=== PATIENT | male | born 1985 | race Caucasian/White ===

== ENCOUNTER 2021-03-14 13:37 | Emergency (ER) | payer SELFPAY ==
[2021-03-14 13:57] VITALS: BP 138/74; PULSE 96; RESP 18; TEMP 98
--- NOTE | 2021-03-14 14:27 | ED ---
Extremity Problem HPI - General Source: patient Mode of arrival: ambulatory Limitations: no limitations <Marta Edmond - Last Filed: 03/14/21 15:00> <Susanna Johnson - Last Filed: 03/15/21 01:22> - General Chief complaint: Extremity Problem,Nontraumatic Stated complaint: Lft ankle pain Time Seen by Provider: 03/14/21 14:01 - History of Present Illness Initial comments: Patient is a 35-year-old male presenting to emergency Department with complaints of left ankle pain over the past week. He describes it as in the front part of his left lower leg near the ankle. He denies any trauma or injuries to his left ankle. Denies any previous surgeries or injuries. He denies any fevers or chills, nausea or vomiting, denies any redness to the area. Denies history of gout. He has no further complaints at this time. (Marta Edmond) - Related Data Previous Rx's Medication Instructions Recorded Mirtazapine [Remeron] 15 mg PO HS 30 Days tab 08/19/14 Omeprazole [PriLOSEC] 20 mg PO AC-BID 30 Days capsule. 08/19/14 Allergies Allergy/AdvReac Type Severity Reaction Status Date / Time No Known Allergies Allergy Verified 03/14/21 13:57 Review of Systems ROS Other: All systems not noted in ROS Statement are negative. <Marta Edmond - Last Filed: 03/14/21 15:00> ROS Other: All systems not noted in ROS Statement are negative. <Susanna Johnson - Last Filed: 03/15/21 01:22> ROS Statement: Those systems with pertinent positive or pertinent negative responses have been documented in the HPI. Past Medical History Past Medical History: No Reported History History of Any Multi-Drug Resistant Organisms: None Reported Past Surgical History: Hernia Repair Past Psychological History: No Psychological Hx Reported Smoking Status: Current every day smoker Past Alcohol Use History: Occasional Past Drug Use History: Marijuana <Marta Edmond - Last Filed: 03/14/21 15:00> General Exam Limitations: no limitations <Marta Edmond - Last Filed: 03/14/21 15:00> - General Exam Comments Initial Comments: GENERAL: Patient is well-developed and well-nourished. Patient is nontoxic and in no acute distress. HEAD: Atraumatic, normocephalic. EYES: Pupils equal round and reactive to light, extraocular movements intact, sclera anicteric, conjunctiva are normal. Eyelids were unremarkable. LUNGS: Unlabored respirations. Breath sounds clear to auscultation bilaterally and equal. No wheezes rales or rhonchi. HEART: Regular rate and rhythm without murmurs, rubs or gallops. MUSCULOSKELETAL: Patient has tenderness along the lower aspect of the left anterior tib muscle and tendon, there is no swelling of the left ankle, [place] neurovascular intact. There is no deformity, no redness, no signs of infection. No clubbing or cyanosis. NEUROLOGICAL: Patient is alert and oriented x 3. SKIN: Warm, Dry, normal turgor, no rashes or lesions noted. (Marta Edmond) Course Vital Signs 03/14/21 13:55 Temperature 98.0 F Pulse Rate 96 Respiratory 18 Rate Blood Pressure 138/74 O2 Sat by Pulse 98 Oximetry Medical Decision Making <Marta Edmond - Last Filed: 03/14/21 15:00> <Susanna Johnson - Last Filed: 03/15/21 01:22> - Medical Decision Making Patient is a 35-year-old male here for left ankle pain increasing over the past week. He has tenderness along the left anterior distal tibialis tendon and muscle. There is no deformity, no swelling, no signs of infection. No history of gout. Denies any injury. X-rays revealed no acute process and his left ankle. Discussed with patient this is most likely a tendinitis. Recommended ice to the area, ibuprofen or Tylenol for discomfort. If symptoms persist he can follow up with orthopedic. I will give him referral. He is stable for discharge. Case discussed with Dr. Montiel. (Marta Edmond) Case was also discussed with me (Susanna Johnson) Disposition Is patient prescribed a controlled substance at d/c from ED?: No Time of Disposition: 14:45 <Marta Edmond - Last Filed: 03/14/21 15:00> <Susanna Johnson - Last Filed: 03/15/21 01:22> Clinical Impression: Left ankle tendinitis Disposition: HOME SELF-CARE Condition: Stable Instructions (If sedation given, give patient instructions): Tendinitis (ED) Additional Instructions: Please return to the Emergency Department if symptoms worsen or any other concerns. Recommend ice to the area, ibuprofen for pain. If symptoms persist, follow up with orthopedics. Referrals: Akira Flor MD [Primary Care Provider] - 1-2 days Ceasar Becerra MD [STAFF PHYSICIAN] - 1-2 days
--- NOTE | 2021-03-14 14:35 | XR ---
EXAMINATION TYPE: XR ankle complete LT DATE OF EXAM: 03/14/2021 CLINICAL HISTORY: Pain and swelling TECHNIQUE: Frontal, lateral and oblique images of the left ankle are obtained. COMPARISON: None. FINDINGS: There is no acute fracture/dislocation evident in the left ankle. There is a nonspecific a nkle joint effusion. IMPRESSION: There is no acute fracture or dislocation in the left ankle. Nonspecific ankle joint eff usion.
== END 2021-03-14 15:23 | disposition home or self-care (01) ==
LOC: EC 13:37
DX: M77.52 Other enthesopathy of left foot and ankle (principal); F17.200 Nicotine dependence, unspecified, uncomplicated
CPT/HCPCS: 99283

== ENCOUNTER 2021-07-19 02:12 | Emergency (ER) | payer OTHER ==
[2021-07-19 02:33] VITALS: BP 116/74; PULSE 114; RESP 16; TEMP 98.9
--- NOTE | 2021-07-19 03:23 | XR ---
EXAMINATION TYPE: XR Hip Complete RT DATE OF EXAM: 07/19/2021 COMPARISON: NONE HISTORY: Hip pain TECHNIQUE: 2 views FINDINGS: I see no fracture nor dislocation. Hip joint space is normal. There is no hip dysplasia. Sa croiliac joint is intact. IMPRESSION: Negative right hip exam.
--- NOTE | 2021-07-19 03:32 | ED ---
General Adult HPI - General Chief complaint: Back Pain/Injury Stated complaint: Hip Pain, Possibly dislocated Time Seen by Provider: 07/19/21 02:48 Source: patient Mode of arrival: ambulatory - History of Present Illness Initial comments: Patient presented to the ER and reported complaint of 3 months of right hip pain to the triage nurse. He expressed concern that he had had a dislocation on a previous x-ray but never had a reduction. X-rays were obtained based on triage complaint. Patient received x-rays and left the ER prior to ER physician evaluation or discussion of results. - Related Data Previous Rx's Medication Instructions Recorded Mirtazapine [Remeron] 15 mg PO HS 30 Days tab 08/19/14 Omeprazole [PriLOSEC] 20 mg PO AC-BID 30 Days capsule. 08/19/14 Allergies Allergy/AdvReac Type Severity Reaction Status Date / Time No Known Allergies Allergy Verified 07/19/21 02:32 Review of Systems ROS Statement: Those systems with pertinent positive or pertinent negative responses have been documented in the HPI. ROS Other: All systems not noted in ROS Statement are negative. Past Medical History Past Medical History: No Reported History Additional Past Medical History / Comment(s): Hernia surgery in 1999, rib fratures/collaped lungs in 2005 History of Any Multi-Drug Resistant Organisms: None Reported Past Surgical History: Hernia Repair Past Psychological History: No Psychological Hx Reported Smoking Status: Current every day smoker, Vaper Past Alcohol Use History: Occasional Past Drug Use History: None Reported General Exam - General Exam Comments Initial Comments: The patient was not physically examined as he left the ER prior to evaluation by physician Course Vital Signs 07/19/21 02:24 Temperature 98.9 F Pulse Rate 114 H Respiratory 16 Rate Blood Pressure 116/74 O2 Sat by Pulse 98 Oximetry Medical Decision Making - Medical Decision Making X-ray was ordered based on patient's complaint stated in triage, x-ray was obtained and the patient left the ER prior to results or evaluation by physician Disposition Clinical Impression: Right hip pain Disposition: Left Against Medical Advice Condition: Good Is patient prescribed a controlled substance at d/c from ED?: No Referrals: Akira Flor MD [Primary Care Provider] - 1-2 days
== END 2021-07-19 04:00 | disposition left against medical advice (07) ==
LOC: EC 02:12
DX: M54.9 Dorsalgia, unspecified (principal); M25.551 Pain in right hip; F17.290 Nicotine dependence, other tobacco product, uncomplicated
CPT/HCPCS: 73502; 99283

== ENCOUNTER 2022-07-18 11:43 | Emergency (ER) | payer OTHER ==
[2022-07-18 11:54] VITALS: BP 125/66; PULSE 94; RESP 18; TEMP 98
[2022-07-18] MEDS ORDERED: BACITRACIN OINT 1 EACH PACKET TOPICAL ONE (12:39)
--- NOTE | 2022-07-18 12:41 | ED ---
Skin/Abscess/FB HPI - General Chief complaint: Skin/Abscess/Foreign Body Stated complaint: dog bite Time Seen by Provider: 07/18/22 12:27 Source: patient, RN notes reviewed Mode of arrival: ambulatory Limitations: no limitations - History of Present Illness Initial comments: Patient is a 36 year old male presenting to the ER with a chief complaint of dog bite. Patient was trying to break up a dog fight when his brother's dog, deion samano, bit him on his right forearm. Patient states it is very painful to move his wrist and fingers. Denies numbness or tingling. Patient is unsure if the dog is up to date on vaccinations. Patient's last tetanus vaccination was about years ago. Patient has no other complaints at this time. - Related Data Previous Rx's Medication Instructions Recorded Mirtazapine [Remeron] 15 mg PO HS 30 Days tab 08/19/14 Omeprazole [PriLOSEC] 20 mg PO AC-BID 30 Days capsule. 08/19/14 Amoxic-Pot Clav 875-125Mg 1 tab PO Q12HR #20 tab 07/18/22 [Augmentin 875-125] Allergies Allergy/AdvReac Type Severity Reaction Status Date / Time No Known Allergies Allergy Verified 07/18/22 11:53 Review of Systems ROS Statement: Those systems with pertinent positive or pertinent negative responses have been documented in the HPI. ROS Other: All systems not noted in ROS Statement are negative. Past Medical History Past Medical History: No Reported History Additional Past Medical History / Comment(s): Hernia surgery in 1999, rib fratures/collaped lungs in 2005 History of Any Multi-Drug Resistant Organisms: None Reported Past Surgical History: Hernia Repair Past Psychological History: No Psychological Hx Reported Smoking Status: Current every day smoker, Vaper Past Alcohol Use History: Occasional Past Drug Use History: None Reported General Exam Limitations: no limitations General appearance: alert, in no apparent distress Head exam: Present: atraumatic, normocephalic, normal inspection Eye exam: Present: normal appearance, PERRL, EOMI. Absent: scleral icterus, conjunctival injection, periorbital swelling ENT exam: Present: normal exam, mucous membranes moist Neck exam: Present: normal inspection. Absent: tenderness, meningismus, lymphadenopathy Respiratory exam: Present: normal lung sounds bilaterally. Absent: respiratory distress, wheezes, rales, rhonchi, stridor Cardiovascular Exam: Present: regular rate, normal rhythm, normal heart sounds. Absent: systolic murmur, diastolic murmur, rubs, gallop, clicks GI/Abdominal exam: Present: soft, normal bowel sounds. Absent: distended, tenderness, guarding, rebound, rigid Extremities exam: Present: normal inspection Back exam: Present: normal inspection Neurological exam: Present: alert, oriented X3, CN II-XII intact Psychiatric exam: Present: normal affect, normal mood Skin exam: Present: other (1cm wound on right forearm; surrounding edema; 1cm scab over right ulnar styloid process.) Course Vital Signs 07/18/22 11:50 Temperature 98.0 F Pulse Rate 94 Respiratory 18 Rate Blood Pressure 125/66 O2 Sat by Pulse 97 Oximetry Medical Decision Making - Medical Decision Making 36-year-old presented for dog bite. X-ray does read and does not show any foreign body, no bony injury. Patient's tetanus is up-to-date patient discharge on Augmentin wound was cleaned. Patient has full range of motion neurovascular intact. Disposition Clinical Impression: Dog bite of forearm Disposition: HOME SELF-CARE Condition: Stable Instructions (If sedation given, give patient instructions): Animal Bite (ED) Additional Instructions: Please return to the Emergency Department if symptoms worsen or any other concerns. Prescriptions: Amoxic-Pot Clav 875-125Mg [Augmentin 875-125] 1 tab PO Q12HR #20 tab Is patient prescribed a controlled substance at d/c from ED?: No Referrals: Akira Flor MD [Primary Care Provider] - 1-2 days Time of Disposition: 13:09
--- NOTE | 2022-07-18 13:07 | XR ---
EXAMINATION TYPE: XR forearm RT DATE OF EXAM: 07/18/2022 CLINICAL HISTORY: pain TECHNIQUE: Frontal and lateral images of the right forearm are obtained. COMPARISON: None. FINDINGS: There is no acute fracture/dislocation evident. The joint spaces appear within normal limi ts. The overlying soft tissue appears unremarkable. IMPRESSION: There is no acute fracture or dislocation. ICD 10 NO FRACTURE, INITIAL EVALUATION
== END 2022-07-18 13:28 | disposition home or self-care (01) ==
LOC: EC 11:43
DX: S51.851A Open bite of right forearm, initial encounter (principal); F17.290 Nicotine dependence, other tobacco product, uncomplicated; W54.0XXA Bitten by dog, initial encounter; Y92.89 Other specified places as the place of occurrence of the external cause
CPT/HCPCS: 99283

== ENCOUNTER 2023-01-20 20:51 | Emergency (ER) | payer OTHER ==
[2023-01-20] MEDS ORDERED: ACETAMINOPHEN TAB 500 MG TAB PO STA (21:51)
[2023-01-20] MEDS ORDERED: SODIUM CHLORIDE 0.9% 1,000 ML IV STA ×2 (21:52)
[2023-01-20] MEDS ORDERED: KETOROLAC 15 MG/ML 1 ML VIAL IVP STA (21:52)
--- NOTE | 2023-01-20 22:09 | XR ---
EXAMINATION TYPE: XR chest 2V DATE OF EXAM: 01/20/2023 9:59 PM COMPARISON: Chest x-ray 07/16/2012 TECHNIQUE: XR chest 2V . CLINICAL INDICATION:Male, 37 years old with history of cough; FINDINGS: Lungs/Pleura: There is no evidence of pleural effusion, focal consolidation, or pneumothorax. Pulmonary vascularity: Unremarkable. Heart/mediastinum: Cardiomediastinal silhouette is unremarkable. Musculoskeletal: No acute osseous pathology. IMPRESSION: No acute cardiopulmonary disease/process.
[2023-01-20 22:27] LABS: Basophils # (A) 0.1 k/uL (0-0.2); Basophils % (A) 0 %; Eosinophils # (A) 0.2 k/uL (0-0.7); Eosinophils % (A) 1 %; HCT 42.3 % (39.0-53.0); HGB 14.4 gm/dL (13.0-17.5); Lymphocytes # (A) 2.3 k/uL (1.0-4.8); Lymphocytes % (A) 14 %; MCH 29.1 pg (25.0-35.0); MCV 85.6 fL (80.0-100.0); Mean Platelet Volume 6.7; Monocytes # (A) 0.5 k/uL (0-1.0); Monocytes % (A) 3 %; Neutrophils # (A) 13.5 k/uL (1.3-7.7); Neutrophils % (A) 81 %; Platelet Count 237 k/uL (150-450); RBC 4.95 m/uL (4.30-5.90); RDW 13.1 % (11.5-15.5); WBC 16.7 k/uL (3.8-10.6)
[2023-01-20 22:37] LABS: African American GFR (CKD) >90 (>60 ml/min/1.73 sqM); Anion Gap 11 mmol/L; Blood Urea Nitrogen 11 mg/dL (9-20); Calcium 8.6 mg/dL (8.4-10.2); Carbon Dioxide 24 mmol/L (22-30); Chloride 98 mmol/L (98-107); Glucose 163 mg/dL (74-99); Non-African American GFR(CKD) >90 (>60 ml/min/1.73 sqM); Potassium 3.8 mmol/L (3.5-5.1); Sodium 133 mmol/L (137-145)
[2023-01-20] MEDS ORDERED: AZITHROMYCIN 500 MG TAB PO STA (23:31)
--- NOTE | 2023-01-20 23:32 | ED ---
General Adult HPI - General Chief complaint: Upper Respiratory Infection Stated complaint: Congestion Time Seen by Provider: 01/20/23 21:42 Source: patient, RN notes reviewed, old records reviewed Mode of arrival: ambulatory Limitations: no limitations - History of Present Illness Initial comments: Patient is a 37-year-old male who presents with Department complaining of cough, congestion for multiple days. States it has been ongoing for a week without much improvement. States he is less than appetite and denies joint pain. No known sick contacts. No abdominal pain, nausea, vomiting, diarrhea. No chest pain. Does have a history of polysubstance abuse. Denies any documented fevers at home. Denies any urinary complaints. No known sick contacts. No other acute complaints at this time. Presents over concern for his upper respiratory infection. States he does have a cough and is sometimes productive but is uncertain what color it is. - Related Data Previous Rx's Medication Instructions Recorded Azithromycin [Zithromax] 250 mg PO DAILY 4 Days #4 tab 01/20/23 Allergies Allergy/AdvReac Type Severity Reaction Status Date / Time No Known Allergies Allergy Verified 01/20/23 21:06 Review of Systems ROS Statement: Those systems with pertinent positive or pertinent negative responses have been documented in the HPI. Review of Systems: CONST: Denies fever EYES: Denies blurry vision ENT: Endorses nasal congestion C/V: Denies Chest pain RESP: Endorses cough GI: Denies abdominal pain : Denies dysuria SKIN: Denies rash. MSK: Denies joint pain. NEURO: Denies headache ROS Other: All systems not noted in ROS Statement are negative. Past Medical History Past Medical History: No Reported History Additional Past Medical History / Comment(s): Hernia surgery in 1999, rib fratures/collaped lungs in 2005 History of Any Multi-Drug Resistant Organisms: None Reported Past Surgical History: Hernia Repair Past Psychological History: No Psychological Hx Reported Smoking Status: Current every day smoker, Vaper Past Alcohol Use History: Occasional Past Drug Use History: None Reported General Exam - General Exam Comments Initial Comments: General: Appears in no acute distress. HEAD: Normal with no signs of head trauma. EYES: PERRLA, EOMI, conjunctiva normal, no discharge. ENT: Hearing grossly intact, normal oropharynx. RESPIRATORY: Clear breath sounds bilaterally. No wheezes, rales, or rhonchi. No hypoxia. No respiratory distress. C/V: Tachycardic with a regular rhythm.. S1 and S2 auscultated, no edema, peripheral pulses 2+ and intact throughout ABD: Abd is soft, nontender, nondistended EXT: Normal range of motion, no obvious deformity SKIN: No rashes or lesions observed on exposed skin. NEURO: Alert and oriented 4. Limitations: no limitations Course Vital Signs 01/20/23 21:03 Temperature 98.6 F Pulse Rate 125 H Respiratory 22 Rate Blood Pressure 121/76 O2 Sat by Pulse 97 Oximetry Medical Decision Making - Medical Decision Making Was pt. sent in by a medical professional or institution (, MANOHAR, UNDERCOVER AGENT, urgent care, hospital, or fci...) When possible be specific @ -No Did you speak to anyone other than the patient for history (EMS, parent, family, police, friend...)? What history was obtained from this source @ -No Did you review nursing and triage notes (agree or disagree)? Why? @ -I reviewed and agree with nursing and triage notes Were old charts reviewed (outside hosp., previous admission, EMS record, old EKG, old radiological studies, urgent care reports/EKG's, fci records)? Report findings @ -No old charts were reviewed Differential Diagnosis (chest pain, altered mental status, abdominal pain women, abdominal pain men, vaginal bleeding, weakness, fever, dyspnea, syncope, headache, dizziness, GI bleed, back pain, seizure, CVA, palpatations, mental health, musculoskeletal)? @ -Viral illness, pneumonia, bronchitis, strep pharyngitis, dehydration. The face is not all-inclusive. EKG interpreted by me (3pts min.). @ -As above X-rays interpreted by me (1pt min.). @ -Chest x-ray reveals no obvious acute cardio pulmonary process. CT interpreted by me (1pt min.). @ -None done U/S interpreted by me (1pt. min.). @ -None done What testing was considered but not performed or refused? (CT, X-rays, U/S, labs )? Why? @ -None What meds were considered but not given or refused? Why? @ -None Did you discuss the management of the patient with other professionals (professionals i.e. , MANOHAR, UNDERCOVER AGENT, lab, RT, psych nurse, clinical social worker, machine printer hose, teacher, chief knowledge officer, high risk case manager)? Give summary @ -No Was smoking cessation discussed for >3mins.? @ -No Was critical care preformed (if so, how long)? @ -No Were there social determinants of health that impacted care today? How? (Homelessness, low income, unemployed, alcoholism, drug addiction, transportation, low edu. Level, literacy, decrease access to med. care, fdc, rehab)? @ -No Was there de-escalation of care discussed even if they declined (Discuss DNR or withdrawal of care, Hospice)? DNR status @ -No What co-morbidities impacted this encounter? (DM, HTN, Smoking, COPD, CAD, Cancer, CVA, ARF, Chemo, Hep., AIDS, mental health diagnosis, sleep apnea, morbid obesity)? @ -None Was patient admitted / discharged? Hospital course, mention meds given and route, prescriptions, significant lab abnormalities, going to OR and other pertinent info. @ -Based on the patient's presentation and physical exam, I'm concerned for infectious etiology for the patient's current symptoms. Likely upper respiratory. We will obtain viral swabs, strep throat swab, as well as chest x- ray and basic labs. He will be given 2 L fluid bolus due to his tachycardia and suspected dehydration. Patient was in agreement this plan. I will provide him with a dose of Tylenol as well as Toradol. Vital signs within acceptable limits other than the tachycardia at this time. No respiratory distress. Labs show a leukocytosis of 16 which is likely somewhat reactive as well as due to hemoconcentration from dehydration. Vital signs negative. Group A strep negative. Chest x-ray shows no obvious acute cardio pulmonary process. EKG unremarkable. On reevaluation, patient is feeling improved. We discussed his results. Tachycardia has resolved. He'll be discharged home at this time. Did offer him a prescription for azithromycin which he accepted. He will be given a dose prior to discharge. Strict return precautions discussed. Discussed symptomatic treatment at home. He will be discharged home at this time in good condition. I will provide the patient with a prescription for azithromycin. I instructed the patient to follow up with their PCP in the next 1-3 days. I explained that the patient should return to the emergency department if they experience any worsening symptoms. Strict return precautions were discussed with the patient. The patient expressed understanding of these instructions. I answered all questi ons that the patient had. The patient was discharged home in good condition with their prescriptions and follow up information. Undiagnosed new problem with uncertain prognosis? @ -No Drug Therapy requiring intensive monitoring for toxicity (Heparin, Nitro, Insulin, Cardizem)? @ -No Were any procedures done? @ -No Diagnosis/symptom? @ -Dehydration, bronchitis Acute, or Chronic, or Acute on Chronic? @ -Acute Uncomplicated (without systemic symptoms) or Complicated (systemic symptoms)? @ -Complicated Side effects of treatment? @ -No Exacerbation, Progression, or Severe Exacerbation? @ -No Poses a threat to life or bodily function? How? (Chest pain, [place], DC, pneumonia, PE, COPD, DKA, ARF, appy, cholecystitis, CVA, Diverticulitis, Homicidal, Suicidal, threat to staff... and all critical care pts) @ -No - Lab Data Result diagrams: 01/20/23 22:08 01/20/23 22:08 Lab Results 01/20/23 01/20/23 01/20/23 Range/Units 22:08 22:08 22:08 WBC 16.7 H (3.8-10.6) k/uL RBC 4.95 (4.30-5.90) m/uL Hgb 14.4 (13.0-17.5) gm/dL Hct 42.3 (39.0-53.0) % MCV 85.6 (80.0-100.0) fL MCH 29.1 (25.0-35.0) pg MCHC 34.0 (31.0-37.0) g/dL RDW 13.1 (11.5-15.5) % Plt Count 237 (150-450) k/uL MPV 6.7 Neutrophils % 81 % Lymphocytes % 14 % Monocytes % 3 % Eosinophils % 1 % Basophils % 0 % Neutrophils # 13.5 H (1.3-7.7) k/uL Lymphocytes # 2.3 (1.0-4.8) k/uL Monocytes # 0.5 (0-1.0) k/uL Eosinophils # 0.2 (0-0.7) k/uL Basophils # 0.1 (0-0.2) k/uL Sodium 133 L (137-145) mmol/L Potassium 3.8 (3.5-5.1) mmol/L Chloride 98 (98-107) mmol/L Carbon Dioxide 24 (22-30) mmol/L Anion Gap 11 mmol/L BUN 11 (9-20) mg/dL Creatinine 0.71 (0.66-1.25) mg/dL Est GFR (CKD-EPI)AfAm >90 (>60 ml/min/1.73 sqM) Est GFR (CKD-EPI)NonAf >90 (>60 ml/min/1.73 sqM) Glucose 163 H (74-99) mg/dL Calcium 8.6 (8.4-10.2) mg/dL Influenza Type A (PCR) (Not Detectd) Influenza Type B (PCR) (Not Detectd) RSV (PCR) (Not Detectd) SARS-CoV-2 (PCR) (Not Detectd) Group A Strep (PCR) NOT DETECTED (Not Detectd) 01/20/23 Range/Units 22:08 WBC (3.8-10.6) k/uL RBC (4.30-5.90) m/uL Hgb (13.0-17.5) gm/dL Hct (39.0-53.0) % MCV (80.0-100.0) fL MCH (25.0-35.0) pg MCHC (31.0-37.0) g/dL RDW (11.5-15.5) % Plt Count (150-450) k/uL MPV Neutrophils % % Lymphocytes % % Monocytes % % Eosinophils % % Basophils % % Neutrophils # (1.3-7.7) k/uL Lymphocytes # (1.0-4.8) k/uL Monocytes # (0-1.0) k/uL Eosinophils # (0-0.7) k/uL Basophils # (0-0.2) k/uL Sodium (137-145) mmol/L Potassium (3.5-5.1) mmol/L Chloride (98-107) mmol/L Carbon Dioxide (22-30) mmol/L Anion Gap mmol/L BUN (9-20) mg/dL Creatinine (0.66-1.25) mg/dL Est GFR (CKD-EPI)AfAm (>60 ml/min/1.73 sqM) Est GFR (CKD-EPI)NonAf (>60 ml/min/1.73 sqM) Glucose (74-99) mg/dL Calcium (8.4-10.2) mg/dL Influenza Type A (PCR) Not Detected (Not Detectd) Influenza Type B (PCR) Not Detected (Not Detectd) RSV (PCR) Not Detected (Not Detectd) SARS-CoV-2 (PCR) Not Detected (Not Detectd) Group A Strep (PCR) (Not Detectd) - EKG Data -: EKG Interpreted by Me EKG Comments: 12-lead Electrocardiogram Interpretation Note EKG was reviewed and interpreted by myself. 12-lead ECG performed at 2316 is interpreted by me as revealing normal sinus rhythm at a rate of 90 beats per minute. [place] is normal. [place] interval is 130 ms, QRS duration is 160 ms, QTc is 420 ms.. There were no ST or T wave abnormalities to suggest myocardial ischemia or injury. R wave progression across the precordium was satisfactory. By my interpretation this EKG is non-diagnostic for acute ischemia. When compared with EKG from 2014, no significant change. Disposition Clinical Impression: Bronchitis, Dehydration Disposition: HOME SELF-CARE Condition: Good Instructions (If sedation given, give patient instructions): Upper Respiratory Infection (ED), Acute Bronchitis (ED) Prescriptions: Azithromycin [Zithromax] 250 mg PO DAILY 4 Days #4 tab Is patient prescribed a controlled substance at d/c from ED?: No Referrals: None,Stated [Primary Care Provider] - 1-2 days Forms: Area PCPs Time of Disposition: 23:25
[2023-01-21 00:23] VITALS: BP 107/68; PULSE 87; RESP 20; TEMP 97.6
== END 2023-01-21 00:24 | disposition home or self-care (01) ==
LOC: EC 20:51
DX: J40 Bronchitis, not specified as acute or chronic (principal); E86.0 Dehydration; F17.290 Nicotine dependence, other tobacco product, uncomplicated; Z20.822 Contact with and (suspected) exposure to COVID-19
CPT/HCPCS: 36415; 93005; 87651; 80048; 85025; 87636; 71046; 99284; 96374; 96361 ×2; J1885

== ENCOUNTER 2023-02-12 02:23 | Inpatient (IN) | payer OTHER ==
[2023-02-12] MEDS: LACTATED RINGERS 1,000 ML IV SCH ×3 (02:30→17:22)
[2023-02-12] MEDS ORDERED: ROCURONIUM 10 MG/ML (5 ML VIAL) IV STA (02:43)
[2023-02-12] MEDS ORDERED: ETOMIDATE 2 MG/ML 10 ML VIAL IVP STA (02:43)
[2023-02-12] MEDS ORDERED: SODIUM CHLORIDE 0.9% 1,000 ML IV ONE (02:52)
[2023-02-12] MEDS ORDERED: LORazepam 2 MG/ML INJ IV STA (02:53)
[2023-02-12] MEDS: SODIUM CHLORIDE 0.9% 1,000 ML IV ONE ×2 (02:55→02:56)
--- NOTE | 2023-02-12 03:00 | XR ---
EXAM: XR Chest, 1 View CLINICAL HISTORY: intubation TECHNIQUE: Frontal view of the chest. COMPARISON: 01/20/2023 FINDINGS: Lungs: The left lateral hemithorax and costophrenic margin are excluded from the [id number]. No definite focal airspace consolidation, accounting for limitations. Pleural space: No definite right pleural effusion or pneumothorax. Heart: Unremarkable. No cardiomegaly. Mediastinum: No significant alteration. The trachea is midline. Bones/joints: Unremarkable. Tubes, lines and devices: The endotracheal tube is identified approximately 4.1 cm from the julien. Nasogastric tube tip cannot be seen but is below the diaphragm. IMPRESSION: The endotracheal tube is identified approximately 4.1 cm from the julien.
[2023-02-12 03:06] LABS: ALT 23 U/L (4-49); AST 32 U/L (17-59); African American GFR (CKD) 66 (>60 ml/min/1.73 sqM); Albumin 4.6 g/dL (3.5-5.0); Alcohol <10 mg/dL; Alkaline Phosphatase 64 U/L (38-126); Anion Gap 23 mmol/L; Blood Urea Nitrogen 18 mg/dL (9-20); Calcium 9.4 mg/dL (8.4-10.2); Carbon Dioxide 18 mmol/L (22-30); Chloride 104 mmol/L (98-107); Creatine Kinase 231 U/L (55-170); Glucose 92 mg/dL (74-99); Non-African American GFR(CKD) 57 (>60 ml/min/1.73 sqM); Potassium 5.8 mmol/L (3.5-5.1); Sodium 145 mmol/L (137-145); Total Bilirubin 0.3 mg/dL (0.2-1.3); Total Protein 7.6 g/dL (6.3-8.2)
[2023-02-12 03:09] LABS: Basophils % (A) 0 %; Eosinophils # (A) 0.1 k/uL (0-0.7); Eosinophils % (A) 1 %; HCT 45.2 % (39.0-53.0); HGB 14.9 gm/dL (13.0-17.5); Lymphocytes # (A) 3.4 k/uL (1.0-4.8); Lymphocytes % (A) 33 %; MCH 29.5 pg (25.0-35.0); MCHC 32.9 g/dL (31.0-37.0); MCV 89.6 fL (80.0-100.0); Mean Platelet Volume 7.6; Monocytes # (A) 0.5 k/uL (0-1.0); Monocytes % (A) 4 %; Neutrophils # (A) 6.1 k/uL (1.3-7.7); Neutrophils % (A) 60 %; Platelet Count 271 k/uL (150-450); RBC 5.05 m/uL (4.30-5.90); RDW 13.9 % (11.5-15.5); WBC 10.2 k/uL (3.8-10.6)
[2023-02-12 03:20] LABS: Partial Thromboplastin Time 20.2 sec (22.0-30.0); Prothrombin Time 10.4 sec (9.0-12.0)
[2023-02-12 03:27] LABS: ABG Base Excess -2.9 mmol/L; ABG HCO3 24 mmol/L (21-25); ABG Oxygen Saturation 99.8 % (94-97); ABG PCO2 56 mmHg (35-45); ABG PH 7.25 (7.35-7.45); ABG PO2 >400 mmHg (83-108); ABG TCO2 26 mmol/L (19-24); Allen Test Performed? Yes
--- NOTE | 2023-02-12 03:28 | ED ---
Overdose HPI - General Chief Complaint: Overdose Stated Complaint: Overdose Time Seen by Provider: 02/12/23 02:40 Source: police, EMS Mode of arrival: EMS Limitations: no limitations - History of Present Illness Initial Comments: 37-year-old male is brought in by police for erratic behavior. They report that the patient ingested 10 g of methamphetamine and then drove to his sponsor's house. He was concerned he was going to get caught with the drugs and therefore ingested it all at one time. Unknown if it was contained in bags. He began having erratic behavior approximately 30 minutes later and the sponsor called EMS. They had difficulty getting the patient out of the house. He was so erratic on seen at they had to give him 10 mg of IM Versed. Patient did have a drop in his sats to 81% with snoring respirations. Patient arrives with a rapid heart rates and no response to painful stimuli. There is some vomitus in the mouth. The police denies that the patient had any physical trauma. No other known ingestions. Remainder of HPI is limited - Related Data Home Medications Medication Instructions Recorded Confirmed No Known Home Medications 02/12/23 02/12/23 Allergies Allergy/AdvReac Type Severity Reaction Status Date / Time No Known Allergies Allergy Verified 02/12/23 08:30 Review of Systems ROS Statement: Those systems with pertinent positive or pertinent negative responses have been documented in the HPI. ROS Other: All systems not noted in ROS Statement are negative. Past Medical History Past Medical History: No Reported History Additional Past Medical History / Comment(s): Hernia surgery in 1999, rib fratures/collaped lungs in 2005 History of Any Multi-Drug Resistant Organisms: None Reported Past Surgical History: Hernia Repair Past Psychological History: No Psychological Hx Reported Smoking Status: Current every day smoker, Vaper Past Alcohol Use History: Occasional Past Drug Use History: None Reported - Past Family History Mother Family Medical History: Unable to Obtain General Exam Limitations: altered mental status General appearance: obtunded, in distress Head exam: Present: atraumatic, normocephalic, normal inspection ENT exam: Present: other (dried vomit on face/corner of mouth) Neck exam: Present: normal inspection. Absent: tenderness, meningismus, lymphadenopathy Respiratory exam: Present: other (decreased respiratory drive) Cardiovascular Exam: Present: normal rhythm, tachycardia GI/Abdominal exam: Present: soft, normal bowel sounds. Absent: distended, tenderness, guarding, rebound, rigid Extremities exam: Present: normal inspection, full ROM, normal capillary refill. Absent: tenderness, pedal edema, joint swelling, calf tenderness Neurological exam: Present: altered, CN II-XII intact, other (does not withdraw to painful stimuli. does not follow commands) Skin exam: Present: diaphoretic Course Vital Signs 02/12/23 02/12/23 02/12/23 02:28 02:39 02:43 Temperature 99.4 F Pulse Rate 158 H 161 H 90 Pulse Rate [ Bilateral Prone ] Respiratory 32 H 16 17 Rate Blood Pressure 84/41 90/57 107/65 O2 Sat by Pulse 95 96 98 Oximetry Fraction of Inspired Oxygen (FIO2) 02/12/23 02/12/23 02/12/23 02:51 02:55 02:56 Temperature Pulse Rate 89 172 H Pulse Rate [ Bilateral Prone ] Respiratory 17 16 Rate Blood Pressure 107/65 105/52 O2 Sat by Pulse 98 97 Oximetry Fraction of 100 Inspired Oxygen (FIO2) 02/12/23 02/12/23 02/12/23 02:59 03:00 03:03 Temperature Pulse Rate 93 156 H Pulse Rate [ 160 H Bilateral Prone ] Respiratory 15 16 Rate Blood Pressure 107/65 110/50 O2 Sat by Pulse 98 97 Oximetry Fraction of Inspired Oxygen (FIO2) 02/12/23 02/12/23 02/12/23 03:10 03:24 03:30 Temperature Pulse Rate 151 H 92 89 Pulse Rate [ Bilateral Prone ] Respiratory 18 15 Rate Blood Pressure 112/53 121/75 121/75 O2 Sat by Pulse 96 98 98 Oximetry Fraction of Inspired Oxygen (FIO2) 02/12/23 02/12/23 02/12/23 03:36 03:40 03:53 Temperature Pulse Rate 137 H 137 H 108 H Pulse Rate [ Bilateral Prone ] Respiratory 16 17 Rate Blood Pressure 115/62 115/62 117/73 O2 Sat by Pulse 96 96 98 Oximetry Fraction of Inspired Oxygen (FIO2) 02/12/23 02/12/23 02/12/23 03:58 04:00 04:10 Temperature 98.5 F Pulse Rate 111 H 110 H Pulse Rate [ Bilateral Prone ] Respiratory 16 14 Rate Blood Pressure 117/73 102/61 O2 Sat by Pulse 98 98 Oximetry Fraction of 50 50 Inspired Oxygen (FIO2) Procedures - Intubation Sedative: Etomidate Mg Given: 20 Paralytic: Rocuronium Mg Given: 50 Laryngoscope: other (glidescope) Size: 4 ET Tube Size: 7.5 ET Tube Uncuffed: No Tube Secured Depth (cm): 22 Tube Secured Location: teeth Tube Placement Confirmation: visualized tube passing through cords, equal breath sounds bilaterally, no breath sounds over epigastrium, confirmation by capnometry Patient Tolerated Procedure: well, no complications - Restraint - Face to Face Restraint Occurrence 1 Patient's Immediate Situation: Endangers self safety, Endangers others' safety Patient's Reaction to the Intervention: Bizarre, Combative, Restless, Resistive to care Patient's Medical & Behavioral Condition: Agitated, Manic, Bizarre behavior Need to Continue or Terminate Restraint or Seclusion: Continue Face to Face Eval of Restraint Date: 02/12/23 Face to Face Eval of Restraint Time: 02:50 Medical Decision Making - Medical Decision Making Was pt. sent in by a medical professional or institution (, PA, CHIEF ESTIMATOR, urgent care, hospital, or jail...) When possible be specific @ -No Did you speak to anyone other than the patient for history (EMS, parent, family, police, friend...)? What history was obtained from this source @ -police Did you review nursing and triage notes (agree or disagree)? Why? @ -I reviewed and agree with nursing and triage notes Were old charts reviewed (outside hosp., previous admission, EMS record, old EKG, old radiological studies, urgent care reports/EKG's, jail records)? Report findings @ -No old charts were reviewed Differential Diagnosis (chest pain, altered mental status, abdominal pain women, abdominal pain men, vaginal bleeding, weakness, fever, dyspnea, syncope, headache, dizziness, GI bleed, back pain, seizure, CVA, palpatations, mental health, musculoskeletal)? @ -drug overdose, alcohol intoxication, svt, acute psychosis EKG interpreted by me (3pts min.). @ -EKG demonstrates rapid heart rate with a rate of 165. QRS 97. QTC of 350. No acute ST segment elevations or depressions X-rays interpreted by me (1pt min.). @ -yes, tube in appropriate position CT interpreted by me (1pt min.). @ -None done U/S interpreted by me (1pt. min.). @ -None done What testing was considered but not performed or refused? (CT, X-rays, U/S, labs)? Why? @ -None What meds were considered but not given or refused? Why? @ -None Did you discuss the management of the patient with other professionals (professionals i.e. , PA, CHIEF ESTIMATOR, lab, RT, psych nurse, social services coordinator, customer service cashier, teacher, chief contract officer, medical case worker)? Give summary @ -Tom Corona from ICU Was smoking cessation discussed for >3mins.? @ -No Was critical care preformed (if so, how long)? @ -yes, 35 minutes for vent management Were there social determinants of health that impacted care today? How? (Nate elessness, low income, unemployed, alcoholism, drug addiction, transportation, low edu. Level, literacy, decrease access to med. care, alf, rehab)? @ -No Was there de-escalation of care discussed even if they declined (Discuss DNR or withdrawal of care, Hospice)? DNR status @ -No What co-morbidities impacted this encounter? (DM, HTN, Smoking, COPD, CAD, Cancer, CVA, ARF, Chemo, Hep., AIDS, mental health diagnosis, sleep apnea, morbid obesity)? @ -None Was patient admitted / discharged? Hospital course, mention meds given and route, prescriptions, significant lab abnormalities, going to OR and other pertinent info. @ -Upon arrival patient is placed into trauma 2. History is obtained from police. Patient is on a nonrebreather due to oxygen saturation 81%. He does have vomits on his lips. He is minimally responsive to painful stimuli. Patient is not protecting his airway and does have some snoring respirations. Because of this the patient is intubated for airway protection. Chest x-ray is performed which demonstrates appropriate position of this tube. Laboratory studies are conducted and reviewed. I spoke with Tom for admission. Patient will be admitted to [facility], [place] - I spoke with Dr. Grewal agreed to admit the patient Undiagnosed new problem with uncertain prognosis? @ -Yes Drug Therapy requiring intensive monitoring for toxicity (Heparin, Nitro, Insulin, Cardizem)? @ -Propofol Were any procedures done? @ -Intubation Diagnosis/symptom? @ -acute meth ingestion, acute vent dependance, sinus tachycardia Acute, or Chronic, or Acute on Chronic? @ -acute Uncomplicated (without systemic symptoms) or Complicated (systemic symptoms)? @ -complicated Side effects of treatment? @ -No Exacerbation, Progression, or Severe Exacerbation? @ -No Poses a threat to life or bodily function? How? (Chest pain, [place], [place], pneumonia, PE, COPD, DKA, ARF, appy, cholecystitis, CVA, Diverticulitis, Homicidal, Suicidal, threat to staff... and all critical care pts) @ -yes, patient came in with altered mentation and not protecting his airway requiring vent dependance - Lab Data Result diagrams: 02/14/23 04:32 02/14/23 04:32 Lab Results 02/12/23 02/12/23 02/12/23 Range/Units 02:55 02:55 02:55 WBC 10.2 (3.8-10.6) k/uL RBC 5.05 (4.30-5.90) m/uL Hgb 14.9 (13.0-17.5) gm/dL Hct 45.2 (39.0-53.0) % MCV 89.6 (80.0-100.0) fL MCH 29.5 (25.0-35.0) pg MCHC 32.9 (31.0-37.0) g/dL RDW 13.9 (11.5-15.5) % Plt Count 271 (150-450) k/uL MPV 7.6 Neutrophils % 60 % Lymphocytes % 33 % Monocytes % 4 % Eosinophils % 1 % Basophils % 0 % Neutrophils # 6.1 (1.3-7.7) k/uL Lymphocytes # 3.4 (1.0-4.8) k/uL Monocytes # 0.5 (0-1.0) k/uL Eosinophils # 0.1 (0-0.7) k/uL Basophils # 0.0 (0-0.2) k/uL PT 10.4 (9.0-12.0) sec INR 1.0 (<1.2) APTT 20.2 L (22.0-30.0) sec Sample Site ABG pH (7.35-7.45) ABG pCO2 (35-45) mmHg ABG pO2 (83-108) mmHg ABG HCO3 (21-25) mmol/L ABG Total CO2 (19-24) mmol/L ABG O2 Saturation (94-97) % ABG Base Excess mmol/L Kee Test FiO2 % Sodium (137-145) mmol/L Potassium (3.5-5.1) mmol/L Chloride (98-107) mmol/L Carbon Dioxide (22-30) mmol/L Anion Gap mmol/L BUN (9-20) mg/dL Creatinine (0.66-1.25) mg/dL Est GFR (CKD-EPI)AfAm (>60 ml/min/1.73 sqM) Est GFR (CKD-EPI)NonAf (>60 ml/min/1.73 sqM) Glucose (74-99) mg/dL Calcium (8.4-10.2) mg/dL Total Bilirubin (0.2-1.3) mg/dL AST (17-59) U/L ALT (4-49) U/L Alkaline Phosphatase (38-126) U/L Creatine Kinase (55-170) U/L Troponin I (0.000-0.034) ng/mL Total Protein (6.3-8.2) g/dL Albumin (3.5-5.0) g/dL Urine Color Yellow Urine Appearance Clear (Clear) Urine pH 5.5 (5.0-8.0) Ur Specific [place] 1.022 (1.001-1.035) Urine Protein Trace H (Negative) Urine Glucose (UA) Negative (Negative) Urine Ketones Negative (Negative) Urine Blood Negative (Negative) Urine Nitrite Negative (Negative) Urine Bilirubin Negative (Negative) Urine Urobilinogen <2.0 (<2.0) mg/dL Ur Leukocyte Esterase Small H (Negative) Urine RBC 4 (0-5) /hpf Urine WBC 24 H (0-5) /hpf Amorphous Sediment Rare H (None) /hpf Urine Mucus Rare H (None) /hpf Urine Opiates Screen Not Detected (NotDetected) Ur Oxycodone Screen Not Detected (NotDetected) Urine Methadone Screen Not Detected (NotDetected) Ur Propoxyphene Screen Not Detected (NotDetected) Ur Barbiturates Screen Not Detected (NotDetected) U Tricyclic Antidepress Not Detected (NotDetected) Ur Phencyclidine Scrn Not Detected (NotDetected) Ur Amphetamines Screen Detected H (NotDetected) U Methamphetamines Scrn Detected H (NotDetected) U Benzodiazepines Scrn Not Detected (NotDetected) Urine Cocaine Screen Not Detected (NotDetected) U Marijuana (THC) Screen Not Detected (NotDetected) Serum Alcohol mg/dL 02/12/23 02/12/23 02/12/23 Range/Units 02:55 02:55 03:26 WBC (3.8-10.6) k/uL RBC (4.30-5.90) m/uL Hgb (13.0-17.5) gm/dL Hct (39.0-53.0) % MCV (80.0-100.0) fL MCH (25.0-35.0) pg MCHC (31.0-37.0) g/dL RDW (11.5-15.5) % Plt Count (150-450) k/uL MPV Neutrophils % % Lymphocytes % % Monocytes % % Eosinophils % % Basophils % % Neutrophils # (1.3-7.7) k/uL Lymphocytes # (1.0-4.8) k/uL Monocytes # (0-1.0) k/uL Eosinophils # (0-0.7) k/uL Basophils # (0-0.2) k/uL PT (9.0-12.0) sec INR (<1.2) APTT (22.0-30.0) sec Sample Site rbrach ABG pH 7.25 L (7.35-7.45) ABG pCO2 56 H (35-45) mmHg ABG pO2 >400 H (83-108) mmHg ABG HCO3 24 (21-25) mmol/L ABG Total CO2 26 H (19-24) mmol/L ABG O2 Saturation 99.8 H (94-97) % ABG Base Excess -2.9 mmol/L Kee Test Yes FiO2 100 % Sodium 145 (137-145) mmol/L Potassium 5.8 H (3.5-5.1) mmol/L Chloride 104 (98-107) mmol/L Carbon Dioxide 18 L (22-30) mmol/L Anion Gap 23 mmol/L BUN 18 (9-20) mg/dL Creatinine 1.52 H (0.66-1.25) mg/dL Est GFR (CKD-EPI)AfAm 66 (>60 ml/min/1.73 sqM) Est GFR (CKD-EPI)NonAf 57 (>60 ml/min/1.73 sqM) Glucose 92 (74-99) mg/dL Calcium 9.4 (8.4-10.2) mg/dL Total Bilirubin 0.3 (0.2-1.3) mg/dL AST 32 (17-59) U/L ALT 23 (4-49) U/L Alkaline Phosphatase 64 (38-126) U/L Creatine Kinase 231 H (55-170) U/L Troponin I <0.012 (0.000-0.034) ng/mL Total Protein 7.6 (6.3-8.2) g/dL Albumin 4.6 (3.5-5.0) g/dL Urine Color Urine Appearance (Clear) Urine pH (5.0-8.0) Ur Specific [place] (1.001-1.035) Urine Protein (Negative) Urine Glucose (UA) (Negative) Urine Ketones (Negative) Urine Blood (Negative) Urine Nitrite (Negative) Urine Bilirubin (Negative) Urine Urobilinogen (<2.0) mg/dL Ur Leukocyte Esterase (Negative) Urine RBC (0-5) /hpf Urine WBC (0-5) /hpf Amorphous Sediment (None) /hpf Urine Mucus (None) /hpf Urine Opiates Screen (NotDetected) Ur Oxycodone Screen (NotDetected) Urine Methadone Screen (NotDetected) Ur Propoxyphene Screen (NotDetected) Ur Barbiturates Screen (NotDetected) U Tricyclic Antidepress (NotDetected) Ur Phencyclidine Scrn (NotDetected) Ur Amphetamines Screen (NotDetected) U Methamphetamines Scrn (NotDetected) U Benzodiazepines Scrn (NotDetected) Urine Cocaine Screen (NotDetected) U Marijuana (THC) Screen (NotDetected) Serum Alcohol <10 mg/dL Disposition Clinical Impression: Methamphetamine abuse, Ventilator dependent, Toxic encephalopathy Disposition: ADMITTED IP TO THIS [facility] Condition: Stable Is patient prescribed a controlled substance at d/c from ED?: No Time of Disposition: 03:40 Decision to Admit Reason: Admit from EC Decision Date: 02/12/23 Decision Time: 03:40
[2023-02-12] MEDS ORDERED: NALOXONE 0.4 MG/ML 1 ML VIAL IV PRN (03:41)
[2023-02-12] MEDS ORDERED: SODIUM CHLORIDE 0.9% 1,000 ML IV SCH (03:45)
[2023-02-12 03:52] LABS: Amorphous Sediment,Urine Rare /hpf; Appearance,Urine Clear (Clear); Bilirubin,Urine Negative (Negative); Blood,Urine Negative (Negative); Color,Urine Yellow; Glucose,Urine (UA) Negative (Negative); Ketones,Urine Negative (Negative); Leukocyte Esterase,Urine Small (Negative); Mucus,Urine Rare /hpf; Nitrite,Urine Negative (Negative); PH, Urine 5.5 (5.0-8.0); Protein,Urine Trace (Negative); RBC,Urine 4 /hpf (0-5); Specific Gravity,Urine 1.022 (1.001-1.035); Urobilinogen,Urine <2.0 mg/dL (<2.0); WBC,Urine 24 /hpf (0-5)
[2023-02-12 04:11] LABS: Amphetamine Screen,Urine Detected (NotDetected); Barbiturate Screen,Urine Not Detected (NotDetected); Benzodiazepines Screen,Urine Not Detected (NotDetected); Cocaine Screen,Urine Not Detected (NotDetected); Methadone Screen, Urine Not Detected (NotDetected); Opiate Screen,Urine Not Detected (NotDetected); Oxycodone Screen, Urine Not Detected (NotDetected); Phencyclidine Screen,Urine Not Detected (NotDetected); Tricyclic Antidepressant,Urine Not Detected (NotDetected); Urn Cannabinoid Scrn Not Detected (NotDetected)
[2023-02-12 04:18] LABS: Glucose,Whole Blood 85 mg/dL (70-110)
--- NOTE | 2023-02-12 04:42 | P.HPIM ---
History of Present Illness H&P Date: 02/12/23 Patient is a 37-year-old male with no known PMH who was brought into the emergency room under police custody for erratic behavior. History was obtained from the ED provider and from the chart as the patient was intubated at the time of interview. The patient had reportedly ingested 10 g of methamphetamines due to the fear that he may get caught. The patient subsequently drove to his sponsor's house where he began developing the erratic behavior. The patient's sponsor subsequently contacted EMS. The patient was given 10 mg of IM Versed by EMS and upon arrival in the emergency room was noted to be hypoxic with SpO2 81% with snoring respirations. Chest x-ray post intubation revealed endotracheal tube 4.1 cm below the julien. Laboratory evaluation revealed a WBC count 10.2, hemoglobin 14.9, ABG pH 7.5, pCO2 56, with sodium 145, potassium 5.8, CO2 19, creatinine 1.5, troponin less than 0.02 with a urine toxicology positive for methamphetamines. ED documentation reviewed and case discussed with ED provider. Review of systems: Unobtainable due to mental status Physical examination: Vital signs reviewed General: Disheveled male intubated, no distress, appears at stated age, normal weight Derm: no unusual rashes/lesions, warm Head: atraumatic, normocephalic, symmetric Eyes: anicteric sclera, pupils equal round reactive to light ENT: Nose and ears atraumatic Neck: No cervical lymphadenopathy, trachea midline, supple Mouth: no lip lesion, mucus membranes moist Cardiovascular: Tachycardic, no murmur, positive dorsalis pedis pulse bilateral, no edema Lungs: CTA bilateral, no rhonchi, no rales, no accessory muscle use Abdominal: soft, nontender to palpation, no guarding Ext: no gross muscle atrophy, no contractures, Neuro: groans to noxious stimuli, unable to assess as patient intubated Psych: Unable to assess Assessment: Methamphetamine overdose Respiratory failure likely due to Versed Imaging: Chest x-ray post intubation revealed endotracheal tube 4.1 cm below the julien. Data Review: Laboratory evaluation revealed a WBC count 10.2, hemoglobin 14.9, ABG pH 7.5, pCO2 56, with sodium 145, potassium 5.8, CO2 19, creatinine 1.5, troponin less than 0.02 with a urine toxicology positive for methamphetamines. Plan: Continue with ventilator bundle Elevator Operator consulted DVT prophylaxis: Lovenox The patient is admitted with an anticipated greater than 2 midnight stay for evaluation of methamphetamine overdose CODE STATUS: Full Code Anticipated discharge place: Home Past Medical History Past Medical History: No Reported History Additional Past Medical History / Comment(s): Hernia surgery in 1999, rib fratures/collaped lungs in 2005 History of Any Multi-Drug Resistant Organisms: None Reported Past Surgical History: Hernia Repair Past Psychological History: No Psychological Hx Reported Smoking Status: Current every day smoker, Vaper Past Alcohol Use History: Occasional Past Drug Use History: None Reported - Past Family History Mother Family Medical History: Unable to Obtain (due to mental status) Medications and Allergies Home Medications Medication Instructions Recorded Confirmed Type Azithromycin [Zithromax] 250 mg PO DAILY 4 Days #4 tab 01/20/23 Rx Allergies Allergy/AdvReac Type Severity Reaction Status Date / Time No Known Allergies Allergy Verified 01/20/23 21:06 Physical Exam Vitals: Vital Signs Temp Pulse Pulse Resp BP Pulse Ox FiO2 02/12/23 04:32 50 02/12/23 03:58 50 02/12/23 03:36 137 H 16 115/62 96 02/12/23 03:03 156 H 16 110/50 97 02/12/23 02:59 160 H 02/12/23 02:56 172 H 16 105/52 97 02/12/23 02:55 100 02/12/23 02:28 99.4 F 158 H 32 H 84/41 95 Intake and Output 02/11/23 02/11/23 02/12/23 14:59 22:59 06:59 Other: Weight 72.575 kg Results CBC & Chem 7: 02/12/23 02:55 02/12/23 02:55 Labs: Abnormal Lab Results - Last 24 Hours (Table) 02/12/23 02/12/23 02/12/23 Range/Units 02:55 02:55 02:55 APTT 20.2 L (22.0-30.0) sec ABG pH (7.35-7.45) ABG pCO2 (35-45) mmHg ABG pO2 (83-108) mmHg ABG Total CO2 (19-24) mmol/L ABG O2 Saturation (94-97) % Potassium 5.8 H (3.5-5.1) mmol/L Carbon Dioxide 18 L (22-30) mmol/L Creatinine 1.52 H (0.66-1.25) mg/dL Creatine Kinase 231 H (55-170) U/L Urine Protein Trace H (Negative) Ur Leukocyte Esterase Small H (Negative) Urine WBC 24 H (0-5) /hpf Amorphous Sediment Rare H (None) /hpf Urine Mucus Rare H (None) /hpf Ur Amphetamines Screen Detected H (NotDetected) U Methamphetamines Scrn Detected H (NotDetected) 02/12/23 Range/Units 03:26 APTT (22.0-30.0) sec ABG pH 7.25 L (7.35-7.45) ABG pCO2 56 H (35-45) mmHg ABG pO2 >400 H (83-108) mmHg ABG Total CO2 26 H (19-24) mmol/L ABG O2 Saturation 99.8 H (94-97) % Potassium (3.5-5.1) mmol/L Carbon Dioxide (22-30) mmol/L Creatinine (0.66-1.25) mg/dL Creatine Kinase (55-170) U/L Urine Protein (Negative) Ur Leukocyte Esterase (Negative) Urine WBC (0-5) /hpf Amorphous Sediment (None) /hpf Urine Mucus (None) /hpf Ur Amphetamines Screen (NotDetected) U Methamphetamines Scrn (NotDetected)
[2023-02-12 05:12] LABS: ABG Base Excess -3.3 mmol/L; ABG HCO3 23 mmol/L (21-25); ABG Oxygen Saturation 94.9 % (94-97); ABG PCO2 45 mmHg (35-45); ABG PH 7.32 (7.35-7.45); ABG PO2 79 mmHg (83-108); ABG TCO2 24 mmol/L (19-24); Allen Test Performed? Yes
--- NOTE | 2023-02-12 05:38 | P.CNPUL ---
History of Present Illness Consult date: 02/12/23 Requesting physician: Susanna Johnson Reason for consult: other (ICU management) Chief complaint: Drug overdose History of present illness: I am seeing this patient in new consultation today 02/12/2023 for ICU management after ingestion of a large amount of methamphetamines requiring intubation for airway protection. Patient is a 37-year-old male with past medical history significant for polysubstance abuse. Apparently, the patient presented to his sponsor's house late last night admitting to ingesting approximately 10 g of methamphetamines due to the fear that he may get caught. His sponsor then called EMS. The patient was brought into the emergency department early this morning and given 10 mg of IM Versed by EMS in route. On arrival to the emergency department he was reportedly hypoxic and obtunded. He was subsequently intubated airway protection. Postintubation chest x-ray shows endotracheal tube approximately 4.1 cm from the julien. There is an orogastric tube coursing below the diaphragm. No acute infiltrates or consolidation, however, the cxr does not include the left base/costophrenic angle. Initial settings include assist control, respiratory rate 16, tidal volume 500, FiO2 100%, PEEP of 5. ABGs done on the settings show a pO2 of greater than 400, pCO2 of 56, pH of 7.25. Respiratory rate was increased to 20 and FiO2 was dropped to 50%. Patient is currently in the ICU on the mechanical ventilator and sedated on propofol which is infusing at 50 mcg/kg/m. Blood pressure is currently normotensive after 4 L normal saline bolus in the emergency room. He has not required vasopressors. CBC on arrival was unremarkable. BMP shows sodium 145, potassium 5.8, chloride 104, serum CO2 18, BUN 18, creatinine 1.52, glucose 92. CK was mildly elevated to 231. Normal saline is infusing at 100 ML's per hour. Urine output is in order of about 60 ML's per hour. Urine tox screen was positive for amphetamines and methamphetamines. Troponins are negative 1. P atient will be monitored in the intensive care unit. Review of Systems ROS unobtainable: due to endotracheal tube Past Medical History Past Medical History: No Reported History Additional Past Medical History / Comment(s): Hernia surgery in 1999, rib fratures/collaped lungs in 2005 History of Any Multi-Drug Resistant Organisms: None Reported Past Surgical History: Hernia Repair Past Psychological History: No Psychological Hx Reported Smoking Status: Current every day smoker, Vaper Past Alcohol Use History: Occasional Past Drug Use History: None Reported - Past Family History Mother Family Medical History: Unable to Obtain (due to mental status) Medications and Allergies Home Medications Medication Instructions Recorded Confirmed Type No Known Home Medications 02/12/23 02/12/23 History Allergies Allergy/AdvReac Type Severity Reaction Status Date / Time No Known Allergies Allergy Verified 02/12/23 08:30 Physical Exam Vitals: Vital Signs Temp Pulse Pulse Pulse Resp BP Pulse Ox 02/12/23 04:49 120 H 02/12/23 04:32 02/12/23 04:18 02/12/23 04:10 110 H 14 102/61 98 02/12/23 04:00 98.5 F 111 H 16 117/73 98 02/12/23 03:58 02/12/23 03:53 108 H 17 117/73 98 02/12/23 03:40 137 H 115/62 96 02/12/23 03:36 137 H 16 115/62 96 02/12/23 03:30 89 15 121/75 98 02/12/23 03:24 92 18 121/75 98 02/12/23 03:10 151 H 112/53 96 02/12/23 03:03 156 H 16 110/50 97 02/12/23 03:00 93 15 107/65 98 02/12/23 02:59 160 H 02/12/23 02:56 172 H 16 105/52 97 02/12/23 02:55 02/12/23 02:51 89 17 107/65 98 02/12/23 02:43 90 17 107/65 98 02/12/23 02:39 161 H 16 90/57 96 02/12/23 02:28 99.4 F 158 H 32 H 84/41 95 FiO2 02/12/23 04:49 50 02/12/23 04:32 50 02/12/23 04:18 60 02/12/23 04:10 02/12/23 04:00 50 02/12/23 03:58 50 02/12/23 03:53 02/12/23 03:40 02/12/23 03:36 02/12/23 03:30 02/12/23 03:24 02/12/23 03:10 02/12/23 03:03 02/12/23 03:00 02/12/23 02:59 02/12/23 02:56 02/12/23 02:55 100 02/12/23 02:51 02/12/23 02:43 02/12/23 02:39 02/12/23 02:28 Intake and Output 02/11/23 02/11/23 02/12/23 14:59 22:59 06:59 Intake Total 200 Output Total 125 Balance 75 Intake: Intake, IV Titration 200 Amount Sodium Chloride 0.9% 1, 200 000 ml @ 100 mls/hr IV . Q10H [facility] Rx#:[id number] Output: Urine 125 Other: Voiding Method Indwelling Catheter Weight 72.575 kg GENERAL EXAM: Sedated and synchronous on the mechanical ventilator in no apparent distress. HEAD: Normocephalic and atraumatic EYES: Normal reaction of pupils, equal size. NOSE: Clear with pink turbinates. THROAT: No erythema or exudates. NECK: No masses, no JVD. CHEST: No chest wall deformity. LUNGS: Equal air entry with no crackles, wheeze, rhonchi or dullness. On the mechanical ventilator CVS: S1 and S2 normal with no audible murmur, regular rhythm. No extra heart sounds. Heart rate is tachycardic ABDOMEN: No hepatosplenomegaly, active bowel sounds, no guarding or rigidity. SPINE: No scoliosis or deformity SKIN: No rashes CENTRAL NERVOUS SYSTEM: No focal deficits, tone is normal in all 4 extremities. EXTREMITIES: There is no peripheral edema, clubbing, or cyanosis. Peripheral pulses are intact. Results - Laboratory Findings CBC and BMP: 02/12/23 05:21 02/12/23 05:21 ABG ABG pH 7.25 (7.35-7.45) L 02/12/23 03:26 ABG pCO2 56 mmHg (35-45) H 02/12/23 03:26 ABG pO2 >400 mmHg (83-108) H 02/12/23 03:26 ABG O2 Saturation 99.8 % (94-97) H 02/12/23 03:26 PT/INR, D-dimer PT 10.4 sec (9.0-12.0) 06/20/23 02:55 INR 1.0 (<1.2) 02/12/23 02:55 Abnormal lab findings: Abnormal Labs 02/12/23 02/12/23 02/12/23 02:55 02:55 02:55 APTT 20.2 L ABG pH ABG pCO2 ABG pO2 ABG Total CO2 ABG O2 Saturation Potassium 5.8 H Carbon Dioxide 18 L Creatinine 1.52 H Creatine Kinase 231 H Urine Protein Trace H Ur Leukocyte Esterase Small H Urine WBC 24 H Amorphous Sediment Rare H Urine Mucus Rare H Ur Amphetamines Screen Detected H U Methamphetamines Scrn Detected H 02/12/23 03:26 APTT ABG pH 7.25 L ABG pCO2 56 H ABG pO2 >400 H ABG Total CO2 26 H ABG O2 Saturation 99.8 H Potassium Carbon Dioxide Creatinine Creatine Kinase Urine Protein Ur Leukocyte Esterase Urine WBC Amorphous Sediment Urine Mucus Ur Amphetamines Screen U Methamphetamines Scrn - Diagnostic Findings Chest x-ray: image reviewed Assessment and Plan Assessment: Acute hypoxemic and hypercapnic respiratory failure secondary to methamphetamine overdose. Patient was ultimately intubated for airway protection. Acute kidney injury, creatinine 1.52 Hyperkalemia History of polysubstance abuse Plan: patient's medications, labs, chest x-ray reviewed Patient will remain on the mechanical ventilator Increased respiratory rate to 20 and titrate FiO2 to maintain oxygen saturation 92% or greater Repeat ABG Repeat labs Propofol for sedation Normal saline infusing at 100 ML's per hour. Has not required any vasopressor support Lovenox for DVT prophylaxis Protonix for GI prophylaxis Patient will be monitored in the intensive care unit I have personally seen and examined the patient, performed the documentation and the assessment and plan as written. Number of minutes spent on the visit:20 This is a joint evaluation that was done along with a nurse practitioner. The patient is being seen in the intensive care unit currently intubated on a mechanical ventilator. The patient had an intentional drug overdose with 10 g of methamphetamine with subsequent agitation and erratic behavior and ultimately arrival to the emergency department, requiring high doses of benzodiazepines and subsequent intubation mechanical ventilation. He does have an acute kidney injury and currently is intubated on a mechanical ventilator on propofol which is running at 60 microvascular kilogram per minute. He seems to be well rested for now. He does have an underlying sinus tachycardia with a heart rate of 110. Nevertheless, he has hemodynamically stable with a pulse ox of 98%. His c urrent ventilator settings with an assist control mode rate of 20 with a tidal volume of 595-50% with a PEEP of 5. Morning blood gases shows improvement in his acid-base status with a pH of 7.32 and a pCO2 of 45 and a pO2 of 79. Peak airway pressure is 23. Creatinine remains stable at 1.4. Urine drug screen is positive for methamphetamines. Rest of the electrolytes are normal. Troponins are negative. CPK was 231. The patient is currently on IV fluids with normal saline to the 100 mL an hour. Urine output is adequate. Is on Lovenox 40 mg subcu for DVT prophylaxis and is also on IV Protonix. We'll keep him intubated overnight 24 hours. We'll start some enteral feeding for nutritional support for today. His chest x-ray postintubation was reviewed and it showed no acute abnormalities. OG tube is in place. ET tube is in place. EKG showed sinus tachycardia. No acute ischemic changes. Recommendations also give the patient a bit over the next 24 hours and we'll start weaning the sedation as of tomorrow. We'll check acetaminophen and salicylate levels. Alcohol levels were negative. Critical care evaluation that was done in more than 30 minutes. Time with Patient: Greater than 30
[2023-02-12 06:11] LABS: African American GFR (CKD) 69 (>60 ml/min/1.73 sqM); Anion Gap 11 mmol/L; Blood Urea Nitrogen 20 mg/dL (9-20); Calcium 8.5 mg/dL (8.4-10.2); Carbon Dioxide 19 mmol/L (22-30); Chloride 111 mmol/L (98-107); Glucose 101 mg/dL (74-99); Magnesium 2.6 mg/dL (1.6-2.3); Non-African American GFR(CKD) 60 (>60 ml/min/1.73 sqM); Potassium 4.2 mmol/L (3.5-5.1); Sodium 141 mmol/L (137-145)
[2023-02-12 06:18] LABS: Basophils # (A) 0.1 k/uL (0-0.2); Basophils % (A) 0 %; Eosinophils # (A) 0.1 k/uL (0-0.7); Eosinophils % (A) 0 %; HCT 42.4 % (39.0-53.0); HGB 13.8 gm/dL (13.0-17.5); Lymphocytes # (A) 1.1 k/uL (1.0-4.8); Lymphocytes % (A) 7 %; MCH 29.3 pg (25.0-35.0); MCHC 32.6 g/dL (31.0-37.0); Mean Platelet Volume 7.3; Monocytes % (A) 6 %; Neutrophils % (A) 86 %; Platelet Count 198 k/uL (150-450); RBC 4.71 m/uL (4.30-5.90); RDW 14.1 % (11.5-15.5); WBC 16.3 k/uL (3.8-10.6)
[2023-02-12] MEDS: PANTOPRAZOLE 40 MG/10 ML VIAL IV SCH (08:08)
[2023-02-12] MEDS: ENOXAPARIN 40 MG/0.4 ML SYRINGE SQ SCH (08:09)
[2023-02-12] MEDS: CHLORHEXIDINE GLUCONATE 15 ML CUP MUCOUS MEM SCH ×2 (08:09→20:12)
[2023-02-12] MEDS: IPRATROPIUM-ALBUTEROL 3 ML NEB INHALATION SCH ×4 (08:24→21:03)
[2023-02-12] MEDS ORDERED: LORazepam 2 MG/ML INJ IV PRN (09:12)
[2023-02-12] MEDS: LORazepam 2 MG/ML INJ IV PRN ×3 (09:19→20:10)
--- NOTE | 2023-02-12 10:09 | P.PN ---
Subjective Progress Note Date: 02/12/23 Patient is a 37 yo CM with no significant past medical history who presented via EMS for erratic behavior. He reported ingested 10 grams of meth and then started on behave erratically requiring IM versed to be administered by EMS. He then became somnolent and obtunded. In the ER he was hypoxic and was subsequently intubated for airway protection. Initial vitals showed tachycardia of 158, elevated respirations 32, and blood pressure of 84/41. He was satting 95% on a 10 L nonrebreather. Initial laboratory analysis was remarkable for potassium of 5.8, creatinine 1.52, and CK of 231. Initial urine drug screen was positive for methamphetamines. He was placed in the ICU and pulmonary critical care was consulted. Patient seen and examined at bedside. He is sedated and unresponsive on the vent. Vital signs reviewed General: nontoxic, no distress, appears at stated age, multiple tattoos Cardiovascular: S1S2 reg, no murmur, positive posterior tibial pulse bilateral, Lungs: [Coarse breath sounds bilateral, no rhonchi, no rales , no accessory muscle use Abdominal: soft, nontender to palpation, no guarding, no appreciable organomegaly Ext: no gross muscle atrophy, no edema b/l lower extremities, no contractures Neuro: Breathing over phone, positive cough, positive gag Psych: Sedated on Vent Assessment/Plan: Meth overdose, no suicidial ideation Acute hypoxic respiratory failure - pulm note reviewed: mechanical ventilator management, propofol for sedation - supportive care with ativan as needed for agitation - tube feedings to start today AILYN Hyperchloremic metabolic acidosis - change IVF to LR given hyperchloremia - recheck CK given AILYN and how close ingestion was to initial lbs - repeat bmp in AM - avoid nephrotoxic agents Hyperkalemia, resolved Hx of polysubstance abuse Imaging: none new Data Review: Vitals reviewed pulse 112, respirations 20, blood pressure 125/77, O2 sat 98% on 50% vent Laboratory analysis remarkable for white blood cell count 16.3, chloride 111, carbon dioxide 119, creatinine 1.46, glucose 101, magnesium 2.6 DVT prophylaxis: Lovenox Anticipated discharge date: Pending Clinical Course Anticipated discharge place: Pending Clinical Course This dictation was prepared using [employer] voice recognition software. Though every attempt is made to correct errors during dictation some may still exist. Objective - Vital Signs Vital signs: Vital Signs Temp 98.5 F 02/12/23 08:00 Pulse 111 H 02/12/23 09:00 Resp 20 02/12/23 09:00 BP 127/81 02/12/23 09:00 Pulse Ox 98 02/12/23 09:00 FiO2 50 02/12/23 08:00 Intake & Output 02/11/23 02/12/23 02/12/23 18:59 06:59 18:59 Intake Total 323.842 344.417 Output Total 215 165 Balance 108.842 179.417 Weight 72.575 kg Intake: Intake, IV Titration 323.842 344.417 Amount Sodium Chloride 0.9% 1, 300 300 000 ml @ 100 mls/hr IV . Q10H [facility] Rx#:[id number] propofoL 1,000 mg In 23.842 44.417 Empty Bag 1 bag @ 15 MCG/ KG/MIN 6.532 mls/hr IV . [id number] [facility] Rx#:[id number] Output: Urine 215 165 Other: Voiding Method Indwelling Catheter - Labs CBC & Chem 7: 02/12/23 05:21 02/12/23 05:21 Labs: Abnormal Lab Results - Last 24 Hours (Table) 02/12/23 02/12/23 02/12/23 Range/Units 02:55 02:55 02:55 WBC (3.8-10.6) k/uL Neutrophils # (1.3-7.7) k/uL APTT 20.2 L (22.0-30.0) sec ABG pH (7.35-7.45) ABG pCO2 (35-45) mmHg ABG pO2 (83-108) mmHg ABG Total CO2 (19-24) mmol/L ABG O2 Saturation (94-97) % Potassium 5.8 H (3.5-5.1) mmol/L Chloride (98-107) mmol/L Carbon Dioxide 18 L (22-30) mmol/L Creatinine 1.52 H (0.66-1.25) mg/dL Glucose (74-99) mg/dL Magnesium (1.6-2.3) mg/dL Creatine Kinase 231 H (55-170) U/L Urine Protein Trace H (Negative) Ur Leukocyte Esterase Small H (Negative) Urine WBC 24 H (0-5) /hpf Amorphous Sediment Rare H (None) /hpf Urine Mucus Rare H (None) /hpf Ur Amphetamines Screen Detected H (NotDetected) U Methamphetamines Scrn Detected H (NotDetected) 02/12/23 02/12/23 02/12/23 Range/Units 03:26 05:06 05:21 WBC 16.3 H (3.8-10.6) k/uL Neutrophils # 14.0 H (1.3-7.7) k/uL APTT (22.0-30.0) sec ABG pH 7.25 L 7.32 L (7.35-7.45) ABG pCO2 56 H (35-45) mmHg ABG pO2 >400 H 79 L (83-108) mmHg ABG Total CO2 26 H (19-24) mmol/L ABG O2 Saturation 99.8 H (94-97) % Potassium (3.5-5.1) mmol/L Chloride (98-107) mmol/L Carbon Dioxide (22-30) mmol/L Creatinine (0.66-1.25) mg/dL Glucose (74-99) mg/dL Magnesium (1.6-2.3) mg/dL Creatine Kinase (55-170) U/L Urine Protein (Negative) Ur Leukocyte Esterase (Negative) Urine WBC (0-5) /hpf Amorphous Sediment (None) /hpf Urine Mucus (None) /hpf Ur Amphetamines Screen (NotDetected) U Methamphetamines Scrn (NotDetected) 02/12/23 Range/Units 05:21 WBC (3.8-10.6) k/uL Neutrophils # (1.3-7.7) k/uL APTT (22.0-30.0) sec ABG pH (7.35-7.45) ABG pCO2 (35-45) mmHg ABG pO2 (83-108) mmHg ABG Total CO2 (19-24) mmol/L ABG O2 Saturation (94-97) % Potassium (3.5-5.1) mmol/L Chloride 111 H (98-107) mmol/L Carbon Dioxide 19 L (22-30) mmol/L Creatinine 1.46 H (0.66-1.25) mg/dL Glucose 101 H (74-99) mg/dL Magnesium 2.6 H (1.6-2.3) mg/dL Creatine Kinase (55-170) U/L Urine Protein (Negative) Ur Leukocyte Esterase (Negative) Urine WBC (0-5) /hpf Amorphous Sediment (None) /hpf Urine Mucus (None) /hpf Ur Amphetamines Screen (NotDetected) U Methamphetamines Scrn (NotDetected)
[2023-02-12 10:44] LABS: Acetaminophen <10.0 ug/mL; Salicylate <1.0 mg/dL
[2023-02-12 11:45] LABS: Glucose,Whole Blood 105 mg/dL (70-110)
[2023-02-12 12:02] VITALS: BMI 23.6
[2023-02-12 18:25] LABS: Glucose,Whole Blood 101 mg/dL (70-110)
[2023-02-13] MEDS: LORazepam 2 MG/ML INJ IV PRN (00:20)
[2023-02-13] MEDS ORDERED: LORazepam 2 MG/ML INJ ONE (01:45)
[2023-02-13 05:28] LABS: HCT 37.6 % (39.0-53.0); HGB 12.5 gm/dL (13.0-17.5); MCH 29.7 pg (25.0-35.0); MCHC 33.2 g/dL (31.0-37.0); MCV 89.4 fL (80.0-100.0); Mean Platelet Volume 7.4; Platelet Count 143 k/uL (150-450); RBC 4.21 m/uL (4.30-5.90); RDW 14.3 % (11.5-15.5); WBC 11.5 k/uL (3.8-10.6)
[2023-02-13 05:29] LABS: Glucose,Whole Blood 115 mg/dL (70-110)
[2023-02-13 05:31] LABS: African American GFR (CKD) >90 (>60 ml/min/1.73 sqM); Anion Gap 4 mmol/L; Blood Urea Nitrogen 13 mg/dL (9-20); Calcium 7.9 mg/dL (8.4-10.2); Carbon Dioxide 22 mmol/L (22-30); Chloride 111 mmol/L (98-107); Glucose 112 mg/dL (74-99); Non-African American GFR(CKD) >90 (>60 ml/min/1.73 sqM); Sodium 137 mmol/L (137-145)
[2023-02-13 05:45] LABS: Glucose,Whole Blood 111 mg/dL (70-110)
[2023-02-13 06:03] LABS: Allen Test Performed? Yes
[2023-02-13 06:04] LABS: ABG HCO3 24 mmol/L (21-25); ABG Oxygen Saturation 98.8 % (94-97); ABG PCO2 32 mmHg (35-45); ABG PH 7.49 (7.35-7.45); ABG PO2 284 mmHg (83-108); ABG TCO2 25 mmol/L (19-24)
[2023-02-13] MEDS: IPRATROPIUM-ALBUTEROL 3 ML NEB INHALATION SCH ×6 (06:09→21:06)
[2023-02-13] MEDS: LACTATED RINGERS 1,000 ML IV SCH ×3 (06:11→12:15)
--- NOTE | 2023-02-13 07:32 | XR ---
EXAMINATION TYPE: XR chest 1V portable DATE OF EXAM: 02/13/2023 COMPARISON: 02/12/2023 INDICATION: Tube placement TECHNIQUE: Single frontal view of the chest is obtained. FINDINGS: The heart size is normal. The pulmonary vasculature is normal. The lungs are clear. Endotracheal tube tip is 5.4 cm above the julien. Nasogastric tube transverses the thorax with tip in left upper quadrant of the abdomen. IMPRESSION: 1. No acute pulmonary process. 2. Endotracheal tube and nasogastric tube discussed above
[2023-02-13] MEDS: PANTOPRAZOLE 40 MG/10 ML VIAL IV SCH (08:22)
[2023-02-13] MEDS: CHLORHEXIDINE GLUCONATE 15 ML CUP MUCOUS MEM SCH (08:22)
[2023-02-13] MEDS: ENOXAPARIN 40 MG/0.4 ML SYRINGE SQ SCH (08:23)
--- NOTE | 2023-02-13 09:19 | P.PN ---
Subjective Progress Note Date: 02/13/23 I am seeing this patient in new consultation today 02/12/2023 for ICU management after ingestion of a large amount of methamphetamines requiring intubation for airway protection. Patient is a 37-year-old male with past medical history significant for polysubstance abuse. Apparently, the patient presented to his sponsor's house late last night admitting to ingesting approximately 10 g of methamphetamines due to the fear that he may get caught. His sponsor then called EMS. The patient was brought into the emergency department early this morning and given 10 mg of IM Versed by EMS in route. On arrival to the emergency department he was reportedly hypoxic and obtunded. He was subsequently intubated airway protection. Postintubation chest x-ray shows endotracheal tube approximately 4.1 cm from the julien. There is an orogastric tube coursing below the diaphragm. No acute infiltrates or consolidation, however, the cxr does not include the left base/costophrenic angle. Initial settings include assist control, respiratory rate 16, tidal volume 500, FiO2 100%, PEEP of 5. ABGs done on the settings show a pO2 of greater than 400, pCO2 of 56, pH of 7.25. Respiratory rate was increased to 20 and FiO2 was dropped to 50%. Patient is currently in the ICU on the mechanical ventilator and sedated on propofol which is infusing at 50 mcg/kg/m. Blood pressure is currently normotensive after 4 L normal saline bolus in the emergency room. He has not required vasopressors. CBC on arrival was unremarkable. BMP shows sodium 145, potassium 5.8, chloride 104, serum CO2 18, BUN 18, creatinine 1.52, glucose 92. CK was mildly elevated to 231. Normal saline is infusing at 100 ML's per hour. Urine output is in order of about 60 ML's per hour. Urine tox screen was positive for amphetamines and methamphetamines. Troponins are negative 1. Patient will be monitored in the intensive care unit. On today's evaluation of 02/13/2023, the patient is being seen for a follow-up. The patient remains in the intensive care unit, intubated on a mechanical ventilator after ingestion of a large amount of methamphetamine. He required intubation and airway protection. He was profoundly agitated. This morning, he is on propofol and this is being gradually weaned off to evaluate his mental status. Currently propofol is running at a dose of 40 mcg/kg/m. Is well rested and is calm and comfortable at this point in time. Hemodynamically is also stable. He is on no pressors. IV fluids are running at the rate of 150 mL an hour of lactated Ringer. The patient remains on a mechanical ventilator. Is on assist-control mode rate of 20, tidal volume of 500, FiO2 of 50% and a PEEP of 5. He was started on enteral feeding for nutritional support yesterday. He is currently receiving vital high-protein at the rate of 51 mL an hour. In terms of his blood gas, he is on a pH of 7.49 with a pCO2 of 32 and pO2 of 284. His chest x-ray from today shows no acute abnormalities. Orotracheal tube is in a good location. His rest of the blood work shows a component of acute rhabdomyolysis. CPK is quite elevated and it peaked at 10,989 and is currently dropping. Acetaminophen and salicylate levels were negative. His BUN is at 30 with a creatinine of 0.7. Serum bicarbs at 22. Sodium level is at 137. WBC thousand 11.5 with a hemoglobin of 12.5 and a platelet count of 143. Otherwise, no other significant events overnight. His current pulse ox is at 99%. He is in a sinus rhythm. The is at the bedside. He has not required any pressors. He is producing adequate amount of urine output at this point in time. Objective - Vital Signs Vital signs: Vital Signs Temp 99.3 F 02/13/23 04:00 Pulse 103 H 02/13/23 08:04 Resp 20 02/13/23 07:00 BP 146/98 02/13/23 07:00 Pulse Ox 98 02/13/23 07:00 FiO2 50 02/13/23 08:00 Intake & Output 02/12/23 02/13/23 02/13/23 18:59 06:59 18:59 Intake Total 2057.359 2235.392 Output Total 1080 610 50 Balance 438.353 0912.392 -50 Weight 72.575 kg Intake: Intake, IV Titration 5663.909 1702.392 Amount Lactated Ringers 1,000 ml 1150 1950 @ 150 mls/hr IV .[id number] [facility] Rx#:[id number] Sodium Chloride 0.9% 1, 400 000 ml @ 100 mls/hr IV . Q10H [facility] Rx#:[id number] propofoL 1,000 mg In 267.359 Empty Bag 1 bag @ 15 MCG/ KG/MIN 6.532 mls/hr IV . [id number] [facility] Rx#:[id number] propofoL 1,000 mg In 285.392 Empty Bag 1 bag @ 15 MCG/ KG/MIN 6.532 mls/hr IV . [id number] [facility] Rx#:[id number] Tube Feeding 180 Other 60 Output: Urine 1080 610 50 Other: Voiding Method Indwelling Catheter Indwelling Catheter - Exam GENERAL EXAM: Sedated and synchronous on the mechanical ventilator in no apparent distress. HEAD: Normocephalic and atraumatic EYES: Normal reaction of pupils, equal size. NOSE: Clear with pink turbinates. THROAT: No erythema or exudates. NECK: No masses, no JVD. CHEST: No chest wall deformity. LUNGS: Equal air entry with no crackles, wheeze, rhonchi or dullness. On the mechanical ventilator CVS: S1 and S2 normal with no audible murmur, regular rhythm. No extra heart sounds. Heart rate is tachycardic ABDOMEN: No hepatosplenomegaly, active bowel sounds, no guarding or rigidity. SPINE: No scoliosis or deformity SKIN: No rashes CENTRAL NERVOUS SYSTEM: No focal deficits, tone is normal in all 4 extremities. EXTREMITIES: There is no peripheral edema, clubbing, or cyanosis. Peripheral pulses are intact. - Labs CBC & Chem 7: 02/13/23 04:56 02/13/23 04:56 Labs: Abnormal Lab Results - Last 24 Hours (Table) 02/12/23 02/12/23 02/12/23 Range/Units 10:13 19:56 23:21 WBC (3.8-10.6) k/uL RBC (4.30-5.90) m/uL Hgb (13.0-17.5) gm/dL Hct (39.0-53.0) % Plt Count (150-450) k/uL ABG pH (7.35-7.45) ABG pCO2 (35-45) mmHg ABG pO2 (83-108) mmHg ABG Total CO2 (19-24) mmol/L ABG O2 Saturation (94-97) % Chloride (98-107) mmol/L Glucose (74-99) mg/dL POC Glucose (mg/dL) 115 H (70-110) mg/dL Calcium (8.4-10.2) mg/dL Creatine Kinase 5448 H* 82832 H* (55-170) U/L 02/13/23 02/13/23 02/13/23 Range/Units 04:56 04:56 04:56 WBC 11.5 H (3.8-10.6) k/uL RBC 4.21 L (4.30-5.90) m/uL Hgb 12.5 L (13.0-17.5) gm/dL Hct 37.6 L (39.0-53.0) % Plt Count 143 L (150-450) k/uL ABG pH (7.35-7.45) ABG pCO2 (35-45) mmHg ABG pO2 (83-108) mmHg ABG Total CO2 (19-24) mmol/L ABG O2 Saturation (94-97) % Chloride 111 H (98-107) mmol/L Glucose 112 H (74-99) mg/dL POC Glucose (mg/dL) (70-110) mg/dL Calcium 7.9 L (8.4-10.2) mg/dL Creatine Kinase 9909 H* (55-170) U/L 02/13/23 02/13/23 Range/Units 05:44 06:00 WBC (3.8-10.6) k/uL RBC (4.30-5.90) m/uL Hgb (13.0-17.5) gm/dL Hct (39.0-53.0) % Plt Count (150-450) k/uL ABG pH 7.49 H (7.35-7.45) ABG pCO2 32 L (35-45) mmHg ABG pO2 284 H (83-108) mmHg ABG Total CO2 25 H (19-24) mmol/L ABG O2 Saturation 98.8 H (94-97) % Chloride (98-107) mmol/L Glucose (74-99) mg/dL POC Glucose (mg/dL) 111 H (70-110) mg/dL Calcium (8.4-10.2) mg/dL Creatine Kinase (55-170) U/L Microbiology - Last 24 Hours (Table) 02/12/23 03:02 Gram Stain - Preliminary Sputum Assessment and Plan Assessment: Acute methamphetamine overdose with secondary psychosis and mental status change Acute hypoxemic and hypercapnic respiratory failure secondary to methamphetamine overdose. Patient was ultimately intubated for airway protection. The patient is currently on propofol and is calm and comfortable. Acute kidney injury, improved and the creatinine is normalized Acute rhabdomyolysis and the CPK level is improving with a normal renal function for now Hyperkalemia, recovered and the potassium level is also normal lites. History of polysubstance abuse Plan: Gradually wean off the sedation and assess the patient's mental status I believe he can potentially be extubated today as long as his mentation is adequate and doesn't have any residual psychosis and LB important to evaluate the patient's mentation off propofol Gas was noted and FiO2 will be dropped down to 40% with also drop the tidal volume to 450 Continue IV fluids Monitor CPK Hold enteral feeding for now in anticipation for possible extubation Hemodynamically stable Precedex screen came back negative Continue rest of the supportive care and we are looking possibly for an extubation today. Alcohol levels were negative. Critical care evaluation that was done in more t calle 30 minutes. Time with Patient: Greater than 30
[2023-02-13 10:16] LABS: African American GFR (CKD) >90 (>60 ml/min/1.73 sqM); Anion Gap 5 mmol/L; Blood Urea Nitrogen 12 mg/dL (9-20); Carbon Dioxide 23 mmol/L (22-30); Chloride 109 mmol/L (98-107); Glucose 117 mg/dL (74-99); Non-African American GFR(CKD) >90 (>60 ml/min/1.73 sqM); Potassium 4.1 mmol/L (3.5-5.1); Sodium 137 mmol/L (137-145)
[2023-02-13 11:22] LABS: Glucose,Whole Blood 86 mg/dL (70-110)
--- NOTE | 2023-02-13 13:42 | P.PN ---
Subjective Progress Note Date: 02/13/23 (delayed charting seen at 0840) Patient is a 37 yo CM with no significant past medical history who presented via EMS for erratic behavior. He reported ingested 10 grams of meth and then s tarted on behave erratically requiring IM versed to be administered by EMS. He then became somnolent and obtunded. In the ER he was hypoxic and was subsequently intubated for airway protection. Initial vitals showed tachycardia of 158, elevated respirations 32, and blood pressure of 84/41. He was satting 95% on a 10 L nonrebreather. Initial laboratory analysis was remarkable for potassium of 5.8, creatinine 1.52, and CK of 231. Initial urine drug screen was positive for methamphetamines. He was placed in the ICU and pulmonary critical care was consulted. Patient seen and examined at bedside with and nursing present. Patient had no acute events overnight. May have had some tremoring yesterday but no seizure-like activity noted. Urine output has been 60 mL or greater per hour. Patient is currently sedated on vent and is not following commands. I did explain to the that due to the long half-life of methamphetamine patient may or may not be amenable to sedation holiday today with possible extubation. is aware. I explained that his renal function is improving. Vital signs reviewed General: nontoxic, no distress, appears at stated age, multiple tattoos Eyes: no lied lesion, pupils non-icteric, PERRL Cardiovascular: S1S2 reg, no murmur, Lungs: Coarse breath sounds bilateral, no rhonchi, no rales , no accessory muscle use Abdominal: soft, nontender to palpation, no guarding, no appreciable organomegaly Ext: no gross muscle atrophy, no edema b/l lower extremities, no contractures Neuro: Breathing over vent setting, moving upper extremities independently Psych: Sedated on Vent Assessment/Plan: Meth overdose, no suicidial ideation Acute toxic encephalopathy Acute hypoxic respiratory failure - pulm note reviewed: mechanical ventilator management, propofol for sedation - supportive care with ativan as needed for agitation - tube feedings to start today Rhabdomyolysis Hyperchloremic metabolic acidosis -Side effect of methamphetamine intoxication -Continue with lactated Ringer's at 150 mL/h -Repeat CPK at 1400 - repeat labs in AM - avoid nephrotoxic agents AILYN, resolved Hyperkalemia, resolved Hx of polysubstance abuse Imaging: Chest x-rays reviewed by myself shows no acute process ET tube in place Data Review: Vital signs reviewed temperature 99.3, pulse 99, respirations 20, blood pressure 135/84, O2 sat 98% on 50% vent Labs reviewed and patient's CPK maxed out 10,000 and, now 9909, white blood cell count 11.5, hemoglobin 12.5, platelets 143, carbon dioxide 22, chloride 111, glucose, creatinine normalized now at 0.71. DVT prophylaxis: Lovenox Anticipated discharge date: Pending Clinical Course Anticipated discharge place: Pending Clinical Course This dictation was prepared using [employer] voice recognition software. Though every attempt is made to correct errors during dictation some may still exist. Objective - Vital Signs Vital signs: Vital Signs Temp 100.3 F H 02/13/23 12:00 Pulse 111 H 02/13/23 12:00 Resp 22 02/13/23 12:00 BP 145/96 02/13/23 12:00 Pulse Ox 99 02/13/23 12:00 FiO2 45 02/13/23 12:00 Intake & Output 02/12/23 02/13/23 02/13/23 18:59 06:59 18:59 Intake Total 2057.359 2235.392 475.057 Output Total 1080 610 400 Balance 881.785 3206.392 75.057 Weight 72.575 kg Intake: IV 300 Lactated Ringers 1,000 ml 300 @ 150 mls/hr IV .[id number] JAYLYN Rx#:[id number] Intake, IV Titration 6804.104 6396.392 94.057 Amount Lactated Ringers 1,000 ml 1150 1950 @ 150 mls/hr IV .Q6H40M JAYLYN Rx#:[id number] Sodium Chloride 0.9% 1, 400 000 ml @ 100 mls/hr IV . Q10H JAYLYN Rx#:[id number] propofoL 1,000 mg In 267.359 Empty Bag 1 bag @ 15 MCG/ KG/MIN 6.532 mls/hr IV . [id number] JAYLYN Rx#:[id number] propofoL 1,000 mg In 285.392 94.057 Empty Bag 1 bag @ 15 MCG/ KG/MIN 6.532 mls/hr IV . [id number] JAYLYN Rx#:[id number] Tube Feeding 180 51 Other 60 30 Output: Urine 1080 610 400 Other: Voiding Method Indwelling Catheter Indwelling Catheter Indwelling Catheter - Labs CBC & Chem 7: 02/13/23 04:56 02/13/23 09:23 Labs: Abnormal Lab Results - Last 24 Hours (Table) 02/12/23 02/12/23 02/13/23 Range/Units 19:56 23:21 04:56 WBC (3.8-10.6) k/uL RBC (4.30-5.90) m/uL Hgb (13.0-17.5) gm/dL Hct (39.0-53.0) % Plt Count (150-450) k/uL ABG pH (7.35-7.45) ABG pCO2 (35-45) mmHg ABG pO2 (83-108) mmHg ABG Total CO2 (19-24) mmol/L ABG O2 Saturation (94-97) % Chloride 111 H (98-107) mmol/L Glucose 112 H (74-99) mg/dL POC Glucose (mg/dL) 115 H (70-110) mg/dL Calcium 7.9 L (8.4-10.2) mg/dL Creatine Kinase 10632 H* (55-170) U/L 02/13/23 02/13/23 02/13/23 Range/Units 04:56 04:56 05:44 WBC 11.5 H (3.8-10.6) k/uL RBC 4.21 L (4.30-5.90) m/uL Hgb 12.5 L (13.0-17.5) gm/dL Hct 37.6 L (39.0-53.0) % Plt Count 143 L (150-450) k/uL ABG pH (7.35-7.45) ABG pCO2 (35-45) mmHg ABG pO2 (83-108) mmHg ABG Total CO2 (19-24) mmol/L ABG O2 Saturation (94-97) % Chloride (98-107) mmol/L Glucose (74-99) mg/dL POC Glucose (mg/dL) 111 H (70-110) mg/dL Calcium (8.4-10.2) mg/dL Creatine Kinase 9909 H* (55-170) U/L 02/13/23 02/13/23 Range/Units 06:00 09:23 WBC (3.8-10.6) k/uL RBC (4.30-5.90) m/uL Hgb (13.0-17.5) gm/dL Hct (39.0-53.0) % Plt Count (150-450) k/uL ABG pH 7.49 H (7.35-7.45) ABG pCO2 32 L (35-45) mmHg ABG pO2 284 H (83-108) mmHg ABG Total CO2 25 H (19-24) mmol/L ABG O2 Saturation 98.8 H (94-97) % Chloride 109 H (98-107) mmol/L Glucose 117 H (74-99) mg/dL POC Glucose (mg/dL) (70-110) mg/dL Calcium 8.0 L (8.4-10.2) mg/dL Creatine Kinase (55-170) U/L Microbiology - Last 24 Hours (Table) 02/12/23 03:02 Gram Stain - Preliminary Sputum
[2023-02-13] MEDS ORDERED: DEXMEDETOMIDINE/0.9% NACL(PMX) 400 MCG in EMPTY BAG 1 BAG IV SCH (14:00)
[2023-02-13] MEDS ORDERED: HYDROmorphone 0.5 MG/0.5 ML SYRINGE IVP PRN (15:44)
[2023-02-13 18:10] LABS: Glucose,Whole Blood 86 mg/dL (70-110)
[2023-02-14] MEDS: LACTATED RINGERS 1,000 ML IV SCH ×2 (01:55→09:33)
[2023-02-14 05:07] LABS: Basophils % (A) 0 %; Eosinophils # (A) 0.3 k/uL (0-0.7); Eosinophils % (A) 3 %; HCT 35.7 % (39.0-53.0); Lymphocytes # (A) 2.7 k/uL (1.0-4.8); Lymphocytes % (A) 33 %; MCH 30.1 pg (25.0-35.0); MCHC 33.5 g/dL (31.0-37.0); MCV 89.7 fL (80.0-100.0); Mean Platelet Volume 7.2; Monocytes # (A) 0.5 k/uL (0-1.0); Monocytes % (A) 6 %; Neutrophils # (A) 4.7 k/uL (1.3-7.7); Neutrophils % (A) 56 %; Platelet Count 138 k/uL (150-450); RBC 3.97 m/uL (4.30-5.90); RDW 14.2 % (11.5-15.5); WBC 8.4 k/uL (3.8-10.6)
[2023-02-14 05:28] LABS: ALT 180 U/L (4-49); AST 252 U/L (17-59); African American GFR (CKD) >90 (>60 ml/min/1.73 sqM); Albumin 2.9 g/dL (3.5-5.0); Alkaline Phosphatase 62 U/L (38-126); Anion Gap 4 mmol/L; Blood Urea Nitrogen 8 mg/dL (9-20); Calcium 8.3 mg/dL (8.4-10.2); Carbon Dioxide 25 mmol/L (22-30); Chloride 106 mmol/L (98-107); Glucose 94 mg/dL (74-99); Magnesium 1.8 mg/dL (1.6-2.3); Non-African American GFR(CKD) >90 (>60 ml/min/1.73 sqM); Phosphorus 2.3 mg/dL (2.5-4.5); Sodium 135 mmol/L (137-145); Total Bilirubin 0.6 mg/dL (0.2-1.3); Total Protein 5.3 g/dL (6.3-8.2)
[2023-02-14] MEDS ORDERED: MAGNESIUM SULFATE-D5W PMX 1 GM in DEXTROSE/WATER 1 100ML.BAG IVPB ONE (05:39)
[2023-02-14] MEDS ORDERED: Magnesium Replacement Protocol 1 EACH MISC MISCELLANE PRN (05:39)
[2023-02-14] MEDS: IPRATROPIUM-ALBUTEROL 3 ML NEB INHALATION SCH ×2 (08:36→13:03)
--- NOTE | 2023-02-14 09:27 | P.PN ---
Subjective Progress Note Date: 02/14/23 I am seeing this patient in new consultation today 02/12/2023 for ICU management after ingestion of a large amount of methamphetamines requiring intubation for airway protection. Patient is a 37-year-old male with past medical history significant for polysubstance abuse. Apparently, the patient presented to his sponsor's house late last night admitting to ingesting approximately 10 g of methamphetamines due to the fear that he may get caught. His sponsor then called EMS. The patient was brought into the emergency department early this morning and given 10 mg of IM Versed by EMS in route. On arrival to the emergency department he was reportedly hypoxic and obtunded. He was subsequently intubated airway protection. Postintubation chest x-ray shows endotracheal tube approximately 4.1 cm from the julien. There is an orogastric tube coursing below the diaphragm. No acute infiltrates or consolidation, however, the cxr does not include the left base/costophrenic angle. Initial settings include assist control, respiratory rate 16, tidal volume 500, FiO2 100%, PEEP of 5. ABGs done on the settings show a pO2 of greater than 400, pCO2 of 56, pH of 7.25. Respiratory rate was increased to 20 and FiO2 was dropped to 50%. Patient is currently in the ICU on the mechanical ventilator and sedated on propofol which is infusing at 50 mcg/kg/m. Blood pressure is currently normotensive after 4 L normal saline bolus in the emergency room. He has not required vasopressors. CBC on arrival was unremarkable. BMP shows sodium 145, potassium 5.8, chloride 104, serum CO2 18, BUN 18, creatinine 1.52, glucose 92. CK was mildly elevated to 231. Normal saline is infusing at 100 ML's per hour. Urine output is in order of about 60 ML's per hour. Urine tox screen was positive for amphetamines and methamphetamines. Troponins are negative 1. Patient will be monitored in the intensive care unit. On today's evaluation of 02/13/2023, the patient is being seen for a follow-up. The patient remains in the intensive care unit, intubated on a mechanical ventilator after ingestion of a large amount of methamphetamine. He required intubation and airway protection. He was profoundly agitated. This morning, he is on propofol and this is being gradually weaned off to evaluate his mental status. Currently propofol is running at a dose of 40 mcg/kg/m. Is well rested and is calm and comfortable at this point in time. Hemodynamically is also stable. He is on no pressors. IV fluids are running at the rate of 150 mL an hour of lactated Ringer. The patient remains on a mechanical ventilator. Is on assist-control mode rate of 20, tidal volume of 500, FiO2 of 50% and a PEEP of 5. He was started on enteral feeding for nutritional support yesterday. He is currently receiving vital high-protein at the rate of 51 mL an hour. In terms of his blood gas, he is on a pH of 7.49 with a pCO2 of 32 and pO2 of 284. His chest x-ray from today shows no acute abnormalities. Orotracheal tube is in a good location. His rest of the blood work shows a component of acute rhabdomyolysis. CPK is quite elevated and it peaked at 10,989 and is currently dropping. Acetaminophen and salicylate levels were negative. His BUN is at 30 with a creatinine of 0.7. Serum bicarbs at 22. Sodium level is at 137. WBC thousand 11.5 with a hemoglobin of 12.5 and a platelet count of 143. Otherwise, no other significant events overnight. His current pulse ox is at 99%. He is in a sinus rhythm. The is at the bedside. He has not required any pressors. He is producing adequate amount of urine output at this point in time. On 02/14/2023, seeing the patient for a follow-up. The patient is awake and alert. The patient was extubated yesterday. He did have issues with increased agitation while coming off the propofol. I transitioned this patient to Precedex and propofol was gradually weaned off. Subsequently, the patient was extubated and he was kept on Precedex for several hours and Precedex is gradually weaned off and discontinued. This morning, he is awake and alert. Slightly restless. For the most part is calm and comfortable, no agitation. No altered mentation. He is a bit weak. His tolerating his diet. He remains on IV fluids with lactated Ringer at the rate of 150 mL an hour. His blood work shows a WBC count of 8 with a hemoglobin of 12 and a platelet count of 138. BUN is at 8 with a creatinine of 0.58 and the sodium level of 135. CPK has been downtrending is down to 6459. No other active issues for now. No improvement oxygen. No focal neurological deficits. Objective - Vital Signs Vital signs: Vital Signs Temp 98.1 F 02/14/23 00:00 Pulse 98 02/14/23 08:47 Resp 13 02/14/23 06:00 BP 133/92 02/14/23 06:00 Pulse Ox 95 02/14/23 06:00 FiO2 45 02/13/23 15:00 Intake & Output 02/13/23 02/14/23 02/14/23 18:59 06:59 18:59 Intake Total 0870.300 1036 Output Total 1260 1595 Balance 394.828 55 Weight 78.6 kg 87.1 kg Intake: IV 1350 1650 Lactated Ringers 1,000 ml 1350 1650 @ 150 mls/hr IV .Q6H40M JAYLYN Rx#:[id number] Intake, IV Titration 163.828 Amount Dexmedetomidine/0.9% NaCl 11.856 (Pmx) 400 mcg In Empty Bag 1 bag @ 0.2 MCG/KG/HR 3.629 mls/hr IV .Q24H JAYLYN Rx#:[id number] propofoL 1,000 mg In 151.972 Empty Bag 1 bag @ 15 MCG/ KG/MIN 6.532 mls/hr IV . [id number] JAYLYN Rx#:[id number] Oral 60 Tube Feeding 51 Other 30 Output: Urine 1260 1595 Other: Voiding Method Indwelling Catheter Indwelling Catheter - Exam GENERAL EXAM: Awake and alert and communicating on room and oxygen HEAD: Normocephalic and atraumatic EYES: Normal reaction of pupils, equal size. NOSE: Clear with pink turbinates. THROAT: No erythema or exudates. NECK: No masses, no JVD. CHEST: No chest wall deformity. LUNGS: Equal air entry with no crackles, wheeze, rhonchi or dullness. On the mechanical ventilator CVS: S1 and S2 normal with no audible murmur, regular rhythm. No extra heart sounds. Heart rate is tachycardic ABDOMEN: No hepatosplenomegaly, active bowel sounds, no guarding or rigidity. SPINE: No scoliosis or deformity SKIN: No rashes CENTRAL NERVOUS SYSTEM: No focal deficits, tone is normal in all 4 extremities. Does have some residual motor weakness, gait has not been assessed. EXTREMITIES: There is no peripheral edema, clubbing, or cyanosis. Peripheral pulses are intact. - Labs CBC & Chem 7: 02/14/23 04:32 02/14/23 04:32 Labs: Abnormal Lab Results - Last 24 Hours (Table) 02/13/23 02/13/23 02/14/23 Range/Units 09:23 14:03 04:32 RBC 3.97 L (4.30-5.90) m/uL Hgb 12.0 L (13.0-17.5) gm/dL Hct 35.7 L (39.0-53.0) % Plt Count 138 L (150-450) k/uL Sodium (137-145) mmol/L Chloride 109 H (98-107) mmol/L BUN (9-20) mg/dL Creatinine (0.66-1.25) mg/dL Glucose 117 H (74-99) mg/dL Calcium 8.0 L (8.4-10.2) mg/dL Phosphorus (2.5-4.5) mg/dL AST (17-59) U/L ALT (4-49) U/L Creatine Kinase 6459 H* (55-170) U/L Total Protein (6.3-8.2) g/dL Albumin (3.5-5.0) g/dL 02/14/23 Range/Units 04:32 RBC (4.30-5.90) m/uL Hgb (13.0-17.5) gm/dL Hct (39.0-53.0) % Plt Count (150-450) k/uL Sodium 135 L (137-145) mmol/L Chloride (98-107) mmol/L BUN 8 L (9-20) mg/dL Creatinine 0.58 L (0.66-1.25) mg/dL Glucose (74-99) mg/dL Calcium 8.3 L (8.4-10.2) mg/dL Phosphorus 2.3 L (2.5-4.5) mg/dL AST 252 H (17-59) U/L ALT 180 H (4-49) U/L Creatine Kinase (55-170) U/L Total Protein 5.3 L (6.3-8.2) g/dL Albumin 2.9 L (3.5-5.0) g/dL Microbiology - Last 24 Hours (Table) 02/12/23 03:02 Gram Stain - Final Sputum Sputum Culture - Final Assessment and Plan Assessment: Acute methamphetamine overdose with secondary psychosis and mental status change, recovered Acute hypoxemic and hypercapnic respiratory failure secondary to methamphetamine overdose. Patient was ultimately intubated for airway protection. The patient was weaned off the mechanical ventilator and the patient was extubated and currently is on room air oxygen. Acute kidney injury, improved and the creatinine is normalized Acute rhabdomyolysis and the CPK level is improving with a normal renal function for now Hyperkalemia, recovered and the potassium level is also normal lites. History of polysubstance abuse Plan: Transfer the patient on medical floor Increase mobility Provide diet Change IV fluids to 75 mL an hour Provide incentive spirometer No significant education. Precedex has been off since yesterday. Patient is h emodynamically stable. The patient may potentially get discharged the next 24 hours.
[2023-02-14] MEDS ORDERED: LACTATED RINGERS 1,000 ML IV SCH (09:30)
[2023-02-14] MEDS: PANTOPRAZOLE 40 MG/10 ML VIAL IV SCH (09:33)
[2023-02-14] MEDS: ENOXAPARIN 40 MG/0.4 ML SYRINGE SQ SCH (09:33)
[2023-02-14 11:59] VITALS: BP 135/88; RESP 18; TEMP 97.8
--- NOTE | 2023-02-14 13:08 | P.DS ---
Providers Date of admission: 02/12/23 03:41 Expected date of discharge: 02/14/23 Attending physician: Daniel Grewal MD Consults: 02/12/23 03:41 Consult Physician Stat Consulting Provider: Shruthi Garcia Consult Reason/Comments: vent dependant, meth overdose Do you want consulting provider notified?: Already Contacted Primary care physician: Physician Nonstaff Hospital Course: Discharge Diagnosis: Meth overdose, no suicidial ideation Acute toxic encephalopathy, resolved Acute hypoxic respiratory failure, resolved Rhabdomyolysis Hyperchloremic metabolic acidosis AILYN, resolved Hyperkalemia, resolved Hx of polysubstance abuse Hospital Course: Patient is a 37 yo CM with no significant past medical history who presented via EMS for erratic behavior. He reported ingested 10 grams of meth and then started on behave erratically requiring IM versed to be administered by EMS. He then became somnolent and obtunded. In the ER he was hypoxic and was subsequently intubated for airway protection. Initial vitals showed tachycardia of 158, elevated respirations 32, and blood pressure of 84/41. He was satting 9 5% on a 10 L nonrebreather. Initial laboratory analysis was remarkable for potassium of 5.8, creatinine 1.52, and CK of 231. Initial urine drug screen was positive for methamphetamines. He was placed in the ICU and pulmonary critical care was consulted. He was successfully extubated on 02/13/23. He has done well. He did have some elevated CPKs during his hospital stay which resolved. His renal function remains stable. He was noted to have slightly elevated transaminases which are secondary to his rhabdomyolysis. He was seen by PT and OT as there is concern about him being off balance however patient did exceptionally well. He was determined stable for discharge home. Follow-up: Patient should establish with a primary care physician. He will increase his fluid intake over the next 2-3 days. He was given instructions to abstain from illicit substances. Patient seen and examined at bedside. Doing well. No acute complaints. Denies any chest pain, shortness breath, headache. He does feel kind of achy and crampy all over but no specific points of pain. Vital signs reviewed and stable. General: nontoxic, no distress, appears at stated age, multiple tattoos Cardiovascular: S1S2 reg, no murmur, positive posterior tibial pulse bilateral, Lungs: CTA bilateral, no rhonchi, no rales , no accessory muscle use Abdominal: soft, nontender to palpation, no guarding, no appreciable organomegaly Ext: no gross muscle atrophy, no edema b/l lower extremities, no contractures Neuro: CN II-XI grossly intact, no focal neuro deficits Psych: Alert, oriented, appropriate affect A total of 32 minutes of time were spent preparing this complex discharge summary. Patient was discharged on 02/14/23. This dictation was prepared using [employer] voice recognition software. Though every attempt is made to correct errors during dictation some may still exist. Patient Condition at Discharge: Stable Plan - Discharge Summary New Discharge Prescriptions: Continue No Known Home Medications Discharge Medication List No Known Home Medications 02/12/23 [History] Follow up Appointment(s)/Referral(s): Nonstaff,Physician [Primary Care Provider] - 1-2 days Activity/Diet/Wound Care/Special Instructions: Activity: As tolerated Diet: Regular Special Instructions: Increased fluid intake for the next 3 days. You should establish with a family doctor. Abstain from Illicit substances. Discharge/Stand Alone Forms: AA Meetings [facility], Community Resources, Outpatient Counseling, In Substance Abuse Facilities Discharge Disposition: HOME SELF-CARE
[2023-02-14 13:13] VITALS: PULSE 96
--- NOTE | 2023-02-15 08:30 | CDI ---
Documentation Clarification Form Date: 02/25/23 From: Melva Hale Admit Date: 02/12/2023 03:41:00 AM Patient Name: Steve Machado Visit Number: [id number] Discharge Date: 02/14/2023 03:13:00 PM ATTENTION: The Clinical Documentation Specialists (CDI) and [facility] Coding Staff appreciate your assistance in clarifying documentation. Please respond to the clarification below the line at the bottom and electronically sign. The CDI & [facility] Coding staff will review the response and follow-up if needed. Please note: Queries are made part of the Legal Health Record. If you have any questions, please contact the author of this message via ITS. Dr. Ciarra Aguilera, Rhabdomyolysis is documented 02/13, progress note and in D Sum. Additional clarification regarding the type of rhabdomyolysis is requested. History/Risk Factors: AILYN, Acute respiratory failure, Toxic encephalopathy, & hyperkalemia Clinical Indicators: slightly elevated transaminases Please clarify the type of rhabdomyolysis, if known: [ ] Traumatic rhabdomyolysis due to fall [ ] Traumatic rhabdomyolysis due to prolonged immobility [ ] Non traumatic rhabdomyolysis due to medication (please specify) [ ] Non traumatic rhabdomyolysis due to infection (please specify) [ ] Other, please specify [ ] Unable to Determine non truamatic rhabdo due to meth overdose MTDD
== END 2023-02-14 15:13 | disposition home or self-care (01) | DRG 812 ==
LOC: EC 02:23 → 2SICU 03:41 → 5NMEDONC 02-14 11:49
PROVIDERS: ADMIT Internal Medicine; ATTEND Internal Medicine
PROC: 0D9670Z Drainage of Stomach with Drainage Device, Via Natural or Artificial Opening (ICD-10-PCS; principal; 2023-02-12)
PROC: 5A1945Z Respiratory Ventilation, 24-96 Consecutive Hours (ICD-10-PCS; 2023-02-12)
PROC: 3E0G76Z Introduction of Nutritional Substance into Upper GI, Via Natural or Artificial Opening (ICD-10-PCS; 2023-02-12)
PROC: 0BH17EZ Insertion of Endotracheal Airway into Trachea, Via Natural or Artificial Opening (ICD-10-PCS; 2023-02-12)
DX: T43.651A Poisoning by methamphetamines accidental (unintentional), initial encounter (principal); J96.01 Acute respiratory failure with hypoxia; J96.02 Acute respiratory failure with hypercapnia; N17.9 Acute kidney failure, unspecified; G92.9 Unspecified toxic encephalopathy; M62.82 Rhabdomyolysis; N25.89 Other disorders resulting from impaired renal tubular function; F15.159 Other stimulant abuse with stimulant-induced psychotic disorder, unspecified; F15.10 Other stimulant abuse, uncomplicated; Z28.310 Unvaccinated for COVID-19; F17.290 Nicotine dependence, other tobacco product, uncomplicated; R00.0 Tachycardia, unspecified; Z71.3 Dietary counseling and surveillance; Z71.6 Tobacco abuse counseling
CPT/HCPCS: 31500; 36415; 36600; 71045; 80048; 80053; 80143; 80179; 80306; 80320; 81001; 82550; 82805; 83735; 84100; 84484; 85025; 85027; 85610; 85730; 87070; 87205; 93005; 94002; 94003; 94640; 96361; 96374; 99291

== ENCOUNTER 2024-01-20 16:07 | Emergency (ER) | payer OTHER ==
[2024-01-20] MEDS: KETOROLAC 15 MG/ML 1 ML VIAL IM STA (16:55)
[2024-01-20] MEDS: Acetaminophen-Codeine 300-30mg TAB PO STA (16:56)
[2024-01-20] MEDS: predniSONE 20 MG TAB PO STA (16:57)
--- NOTE | 2024-01-20 17:21 | XR ---
EXAMINATION TYPE: XR chest 2V DATE OF EXAM: 01/20/2024 5:08 PM CLINICAL INDICATION:Male, 38 years old with history of cough; [facility] COMPARISON: Chest radiographs from 02/13/2023 TECHNIQUE: XR chest 2V Frontal and lateral views of the chest. FINDINGS: Lungs/Pleura: Multifocal airspace opacities. No evidence of pneumothorax or pleural effusion. Pulmonary vascularity: Unremarkable. Heart/mediastinum: Cardiomediastinal silhouette is unremarkable. Musculoskeletal: No acute osseous pathology. Other findings: None Lines/Tubes: IMPRESSION: Multifocal airspace opacities concerning for pneumonia.
--- NOTE | 2024-01-20 17:32 | ED ---
URI HPI - General Chief Complaint: Upper Respiratory Infection Stated Complaint: Burning sensation in lungs Time Seen by Provider: 01/20/24 16:14 Source: patient, RN notes reviewed, old records reviewed Mode of arrival: ambulatory Limitations: no limitations - History of Present Illness Initial Comments: This is a 38-year-old male to the ER for evaluation he presents today for evaluation of cough congestion weakness not feeling well shortness of breath fevers. Patient states he cannot catch his breath especially with significant exertion. Patient is in no acute distress here in the emergency department no recent travel history or sick contacts. MD Complaint: cough, nasal congestion, sinus pain -: days(s) Severity: moderate Severity scale (1-10): 5 Quality: dull Consistency: constant Improves With: nothing Worsens With: nothing Context: sick contacts Associated Symptoms: denies other symptoms, shortness of breath, nausea, vomiting Treatments Prior to Arrival: none - Related Data Previous Rx's Medication Instructions Recorded Albuterol Sulfate [Proair 1 puff INHALATION Q6H PRN #1 each 01/20/24 Digihaler] Amoxic-Pot Clav 875-125Mg 1 tab PO Q12HR #20 tablet 01/20/24 [Augmentin 875-125] Azithromycin [Zithromax] 500 mg PO DAILY 5 Days #5 tab 01/20/24 Allergies Allergy/AdvReac Type Severity Reaction Status Date / Time No Known Allergies Allergy Verified 02/12/23 08:30 Review of Systems ROS Statement: Those systems with pertinent positive or pertinent negative responses have been documented in the HPI. ROS Other: All systems not noted in ROS Statement are negative. Past Medical History Past Medical History: CVA/TIA, Myocardial Infarction ([place]) Additional Past Medical History / Comment(s): Hernia surgery in 1999, rib fratures/collaped lungs in 2005 History of Any Multi-Drug Resistant Organisms: None Reported Past Surgical History: Hernia Repair Past Psychological History: No Psychological Hx Reported Smoking Status: Current every day smoker, Vaper Past Alcohol Use History: Occasional Past Drug Use History: None Reported - Past Family History Mother Family Medical History: Unable to Obtain General Exam Limitations: no limitations General appearance: alert, in no apparent distress Head exam: Present: atraumatic, normocephalic, normal inspection Eye exam: Present: normal appearance, PERRL, EOMI. Absent: scleral icterus, conjunctival injection, periorbital swelling ENT exam: Present: normal exam, mucous membranes moist Neck exam: Present: normal inspection. Absent: tenderness, meningismus, lymphadenopathy Respiratory exam: Present: normal lung sounds bilaterally. Absent: respiratory distress, wheezes, rales, rhonchi, stridor Cardiovascular Exam: Present: regular rate, normal rhythm, normal heart sounds. Absent: systolic murmur, diastolic murmur, rubs, gallop, clicks GI/Abdominal exam: Present: soft, normal bowel sounds. Absent: distended, tenderness, guarding, rebound, rigid Extremities exam: Present: normal inspection, full ROM, normal capillary refill. Absent: tenderness, pedal edema, joint swelling, calf tenderness Back exam: Present: normal inspection Neurological exam: Present: alert, oriented X3, CN II-XII intact Psychiatric exam: Present: normal affect, normal mood Skin exam: Present: warm, dry, intact, normal color. Absent: rash Course Vital Signs 01/20/24 01/20/24 01/20/24 16:08 16:13 18:03 Temperature 98.3 F Pulse Rate 80 80 Respiratory 16 20 Rate Blood Pressure 127/86 O2 Sat by Pulse 98 Oximetry 01/20/24 01/20/24 18:11 18:13 Temperature 98.1 F Pulse Rate 86 82 Respiratory 18 Rate Blood Pressure 114/73 O2 Sat by Pulse 96 Oximetry - Reevaluation(s) Reevaluation #1: 01/20/24 17:31 Medical record is reviewed Reevaluation #2: 01/20/24 17:32 Symptoms improved Reevaluation #3: 01/20/24 17:32 Informed of results questions answered Reevaluation #4: Was pt. sent in by a medical professional or institution (, PA, [employer]ER, urgent care, hospital, or group home...) When possible be specific @ -no Did you speak to anyone other than the patient for history (EMS, parent, family, police, friend...)? What history was obtained from this source @ -no Did you review nursing and triage notes (agree or disagree)? Why? @ -agree Are old charts reviewed (outside hosp., previous admission, EMS record, old EKG, old radiological studies, urgent care reports/EKG's, group home records)? Report findings @ -yes Differential Diagnosis (chest pain, altered mental status, abdominal pain women, abdominal pain men, vaginal bleeding, weakness, fever, dyspnea, syncope, headache, dizziness, GI bleed, back pain, seizure, CVA, palpatations, mental health, musculoskeletal)? @ -prior EKG interpreted by me (3pts min.). @ -no X-rays interpreted by me (1pt min.). @ -yes negative for acute disease CT interpreted by me (1pt min.). @ -no U/S interpreted by me (1pt. min.). @ -no What testing was considered but not performed or refused? (CT, X-rays, U/S, labs)? Why? @ -none What meds were considered but not given or refused? Why? @ -none Did you discuss the management of the patient with other professionals (professionals i.e. , PA, [employer], lab, RT, psych nurse, school social worker, electrical integrator, teacher, radiological defense officer, case management director)? Give summary @ -no Was smoking cessation discussed for >3mins.? @ -no Was critical care preformed (if so, how long)? @ -no Were there social determinants of health that impacted care today? How? (Homelessness, low income, unemployed, alcoholism, drug addiction, transportation, low edu. Level, literacy, decrease access to med. care, intermediate, rehab)? @ -none Was there de-escalation of care discussed even if they declined (Discuss DNR or withdrawal of care, Hospice)? DNR status @ -no What co-morbidities impacted this encounter? (DM, HTN, Smoking, COPD, CAD, Cancer, CVA, ARF, Chemo, Hep., AIDS, mental health diagnosis, sleep apnea, morbid obesity)? @ -none Was patient admitted / discharged? Hospital course, mention meds given and route, prescriptions, significant lab abnormalities, going to OR and other pertinent info. @ - 38 male to ER for evaluation of cough congestion weakness found positive for pneumonia, placed on antibiotics and can be discharged home Discharge Undiagnosed new problem with uncertain prognosis? @ -no Drug Therapy requiring intensive monitoring for toxicity (Heparin, Nitro, Insulin, Cardizem)? @ -no Were any procedures done? @ -no Diagnosis/symptom? @ -Community-acquired pneumonia Acute, or Chronic, or Acute on Chronic? @ -Acute Uncomplicated (without systemic symptoms) or Complicated (systemic symptoms)? @ -Complicated Side effects of treatment? @ -no Exacerbation, Progression, or Severe Exacerbation? @ -exacerbation Poses a threat to life or bodily function? How? (Chest pain, [place], [place], pneumonia, PE, COPD, DKA, ARF, appy, cholecystitis, CVA, Diverticulitis, Homicidal, Suicidal, threat to staff... and all critical care pts) @ -yes with significant lung infection and pneumonia Reevaluation #5: Differential Dyspnea: Coronary syndrome, arrhythmia, tamponade, asthma, COPD, pulmonary embolism, pneumonia, pneumothorax, pulmonary effusion, anaphylaxis, diabetic ketoacidosis, flailed chest, pulmonary contusion, diaphragmatic rupture, anemia, neuromuscular, this is not meant to be an all-inclusive list. Medical Decision Making - Medical Decision Making 38 male to ER for evaluation of cough congestion weakness found positive for pneumonia, placed on antibiotics and can be discharged home - Lab Data Lab Results 01/20/24 Range/Units 17:00 Influenza Type A (PCR) Not Detected (Not Detectd) Influenza Type B (PCR) Not Detected (Not Detectd) RSV (PCR) Not Detected (Not Detectd) SARS-CoV-2 (PCR) Not Detected (Not Detectd) - Radiology Data Radiology results: report reviewed (Chest x-ray is positive for pneumonia), image reviewed Disposition Clinical Impression: Community acquired pneumonia, Bronchitis, Tracheobronchitis Disposition: HOME SELF-CARE Condition: Good Instructions (If sedation given, give patient instructions): Community Acquired Pneumonia (ED) Prescriptions: Amoxic-Pot Clav 875-125Mg [Augmentin 875-125] 1 tab PO Q12HR #20 tablet Albuterol Sulfate [Proair Digihaler] 1 puff INHALATION Q6H PRN #1 each PRN Reason: Cough Azithromycin [Zithromax] 500 mg PO DAILY 5 Days #5 tab Is patient prescribed a controlled substance at d/c from ED?: No Referrals: None,Stated [Primary Care Provider] - 1-2 days
[2024-01-20] MEDS: AMOXIC-POT CLAV 875-125MG 1 EACH TAB PO STA (17:48)
[2024-01-20] MEDS: AZITHROMYCIN 500 MG TAB PO STA (17:48)
[2024-01-20] MEDS: IPRATROPIUM-ALBUTEROL 3 ML NEB INHALATION STA (18:01)
[2024-01-20 18:27] VITALS: BP 114/73; PULSE 82; RESP 18; TEMP 98.1
== END 2024-01-20 18:15 | disposition home or self-care (01) ==
LOC: EC 16:07
DX: J18.9 Pneumonia, unspecified organism (principal); J40 Bronchitis, not specified as acute or chronic; F17.290 Nicotine dependence, other tobacco product, uncomplicated
CPT/HCPCS: 99285; 96372 ×2; 94640; 87636; 71046; 99284; J1885; J7512

== ENCOUNTER 2024-02-23 21:11 | Inpatient (IN) | payer OTHER ==
--- NOTE | 2024-02-23 21:37 | ED ---
URI HPI - General Chief Complaint: Upper Respiratory Infection Stated Complaint: BEN Time Seen by Provider: 02/23/24 21:19 Source: patient, RN notes reviewed, old records reviewed Mode of arrival: ambulatory Limitations: no limitations - History of Present Illness Initial Comments: This is a 38-year-old male to ER for evaluation of severe shortness of breath cough congestion and overall not feeling well. Patient states symptoms are similar to about a month ago he states he initially got better but have progressively again gotten worse. He has shortness of breath cough difficulty catching his breath and difficulty with any activity. MD Complaint: fever, cough -: week(s) Severity: severe Severity scale (1-10): 8 Consistency: intermittent Associated Symptoms: cough, chest pain, shortness of breath Treatments Prior to Arrival: none - Related Data Home Medications Medication Instructions Recorded Confirmed Albuterol Sulfate [Ventolin HFA] 1 - 2 puff INHALATION RT-Q6H PRN 02/24/24 02/24/24 Allergies Allergy/AdvReac Type Severity Reaction Status Date / Time No Known Allergies Allergy Verified 02/24/24 08:55 Review of Systems ROS Statement: Those systems with pertinent positive or pertinent negative responses have been documented in the HPI. ROS Other: All systems not noted in ROS Statement are negative. Past Medical History Past Medical History: CVA/TIA, Myocardial Infarction ([place]) Additional Past Medical History / Comment(s): Hernia surgery in 1999, rib fratures/collaped lungs in 2005 History of Any Multi-Drug Resistant Organisms: None Reported Past Surgical History: Hernia Repair Past Psychological History: No Psychological Hx Reported Smoking Status: Current every day smoker, Vaper Past Alcohol Use History: Occasional Past Drug Use History: None Reported - Past Family History Mother Family Medical History: Unable to Obtain General Exam Limitations: no limitations General appearance: alert, in no apparent distress Head exam: Present: atraumatic, normocephalic, normal inspection Eye exam: Present: normal appearance, PERRL, EOMI. Absent: scleral icterus, conjunctival injection, periorbital swelling ENT exam: Present: normal exam, mucous membranes moist Neck exam: Present: normal inspection. Absent: tenderness, meningismus, lymphadenopathy Respiratory exam: Present: normal lung sounds bilaterally. Absent: respiratory distress, wheezes, rales, rhonchi, stridor Cardiovascular Exam: Present: regular rate, normal rhythm, normal heart sounds. Absent: systolic murmur, diastolic murmur, rubs, gallop, clicks GI/Abdominal exam: Present: soft, normal bowel sounds. Absent: distended, tenderness, guarding, rebound, rigid Extremities exam: Present: normal inspection, full ROM, normal capillary refill. Absent: tenderness, pedal edema, joint swelling, calf tenderness Back exam: Present: normal inspection Neurological exam: Present: alert, oriented X3, CN II-XII intact Psychiatric exam: Present: normal affect, normal mood Skin exam: Present: warm, dry, intact, normal color. Absent: rash Course Vital Signs 02/23/24 02/23/24 02/23/24 21:13 21:25 23:00 Temperature 97.4 F L 97.6 F Pulse Rate 90 92 Respiratory 18 18 22 Rate Blood Pressure 128/85 O2 Sat by Pulse 97 Oximetry 02/23/24 02/24/24 02/24/24 23:12 00:10 00:20 Temperature 97.9 F Pulse Rate 99 76 83 Respiratory 22 18 Rate Blood Pressure 126/93 117/62 O2 Sat by Pulse 98 96 Oximetry - Reevaluation(s) Reevaluation #1: 02/23/24 23:54 Medical records reviewed Reevaluation #2: 02/23/24 23:54 Patient symptoms relatively unchanged Reevaluation #3: 02/23/24 23:55 Patient informed of results questions answered Reevaluation #4: Was pt. sent in by a medical professional or institution (, PA, [employer], urgent care, hospital, or fdc...) When possible be specific @ -no Did you speak to anyone other than the patient for history (EMS, parent, family, police, friend...)? What history was obtained from this source @ -no Did you review nursing and triage notes (agree or disagree)? Why? @ -agree Are old charts reviewed (outside hosp., previous admission, EMS record, old EKG, old radiological studies, urgent care reports/EKG's, fdc records)? Report findings @ -yes Differential Diagnosis (chest pain, altered mental status, abdominal pain women, abdominal pain men, vaginal bleeding, weakness, fever, dyspnea, syncope, headache, dizziness, GI bleed, back pain, seizure, CVA, palpatations, mental health, musculoskeletal)? @ -prior EKG interpreted by me (3pts min.). @ -yes X-rays interpreted by me (1pt min.). @ -yes positive multifocal pneumonia CT interpreted by me (1pt min.). @ -Yes positive for multifocal pneumonia U/S interpreted by me (1pt. min.). @ -no What testing was considered but not performed or refused? (CT, X-rays, U/S, labs)? Why? @ -none What meds were considered but not given or refused? Why? @ -none Did you discuss the management of the patient with other professionals (professionals i.e. , PA, JEWELRY CONSULTANT, lab, RT, psych nurse, social work specialist, real estate lawyer, teacher, branch lending officer, disability case manager)? Give summary @ -no Was smoking cessation discussed for >3mins.? @ -no Was critical care preformed (if so, how long)? @ -no Were there social determinants of health that impacted care today? How? (Homelessness, low income, unemployed, alcoholism, drug addiction, transportation, low edu. Level, literacy, decrease access to med. care, [facility], rehab)? @ -none Was there de-escalation of care discussed even if they declined (Discuss DNR or withdrawal of care, Hospice)? DNR status @ -no What co-morbidities impacted this encounter? (DM, HTN, Smoking, COPD, CAD, Cancer, CVA, ARF, Chemo, Hep., AIDS, mental health diagnosis, sleep apnea, m orbid obesity)? @ -none Was patient admitted / discharged? Hospital course, mention meds given and route, prescriptions, significant lab abnormalities, going to OR and other pertinent info. @ - 38 male will be admitted for pulmonary consult regarding persistent bilateral multifocal pneumonia Admitted Undiagnosed new problem with uncertain prognosis? @ -no Drug Therapy requiring intensive monitoring for toxicity (Heparin, Nitro, Insulin, Cardizem)? @ -no Were any procedures done? @ -no Diagnosis/symptom? @ -Bilateral multifocal pneumonia Acute, or Chronic, or Acute on Chronic? @ -Acute Uncomplicated (without systemic symptoms) or Complicated (systemic symptoms)? @ -Complicated Side effects of treatment? @ -no Exacerbation, Progression, or Severe Exacerbation? @ -exacerbation Poses a threat to life or bodily function? How? (Chest pain, [place], [place], pneumonia, PE, COPD, DKA, ARF, appy, cholecystitis, CVA, Diverticulitis, Homicidal, Suicidal, threat to staff... and all critical care pts) @ -yes multifocal pneumonia Reevaluation #5: Differential Dyspnea: Coronary syndrome, arrhythmia, tamponade, asthma, COPD, pulmonary embolism, pneumonia, pneumothorax, pulmonary effusion, anaphylaxis, diabetic ketoacidosis, flailed chest, pulmonary contusion, diaphragmatic rupture, anemia, neuromuscular, this is not meant to be an all-inclusive list. - Consultations Consultation #1: Spoke with [facility] who agrees to admit this patient Medical Decision Making - Medical Decision Making 38 male will be admitted for pulmonary consult regarding persistent bilateral multifocal pneumonia - Lab Data Result diagrams: 02/23/24 22:10 02/23/24 22:10 Lab Results 02/23/24 02/23/24 02/23/24 Range/Units 21:39 22:10 22:10 WBC 7.8 (3.8-10.6) k/uL RBC 5.39 (4.30-5.90) m/uL Hgb 15.7 (13.0-17.5) gm/dL Hct 48.3 (39.0-53.0) % MCV 89.5 (80.0-100.0) fL MCH 29.1 (25.0-35.0) pg MCHC 32.5 (31.0-37.0) g/dL RDW 12.8 (11.5-15.5) % Plt Count 267 (150-450) k/uL MPV 7.3 Neutrophils % 57 % Lymphocytes % 29 % Monocytes % 8 % Eosinophils % 4 % Basophils % 1 % Neutrophils # 4.5 (1.3-7.7) k/uL Lymphocytes # 2.3 (1.0-4.8) k/uL Monocytes # 0.6 (0-1.0) k/uL Eosinophils # 0.3 (0-0.7) k/uL Basophils # 0.0 (0-0.2) k/uL PT 10.3 (10.0-12.5) sec INR 0.9 (<1.2) APTT 24.0 (22.0-30.0) sec D-Dimer 0.27 (<0.60) mg/L FEU Sodium (137-145) mmol/L Potassium (3.5-5.1) mmol/L Chloride (98-107) mmol/L Carbon Dioxide (22-30) mmol/L Anion Gap mmol/L BUN (9-20) mg/dL Creatinine (0.66-1.25) mg/dL Est GFR (CKD-EPI)AfAm (>60 ml/min/1.73 sqM) Est GFR (CKD-EPI)NonAf (>60 ml/min/1.73 sqM) Glucose (74-99) mg/dL Calcium (8.4-10.2) mg/dL Magnesium (1.6-2.3) mg/dL Total Bilirubin (0.2-1.3) mg/dL AST (17-59) U/L ALT (4-49) U/L Alkaline Phosphatase (38-126) U/L Troponin I (0.000-0.034) ng/mL NT-Pro-B Natriuret Pep pg/mL Total Protein (6.3-8.2) g/dL Albumin (3.5-5.0) g/dL Influenza Type A (PCR) Not Detected (Not Detectd) Influenza Type B (PCR) Not Detected (Not Detectd) RSV (PCR) Not Detected (Not Detectd) SARS-CoV-2 (PCR) Not Detected (Not Detectd) 02/23/24 02/23/24 Range/Units 22:10 22:10 WBC (3.8-10.6) k/uL RBC (4.30-5.90) m/uL Hgb (13.0-17.5) gm/dL Hct (39.0-53.0) % MCV (80.0-100.0) fL MCH (25.0-35.0) pg MCHC (31.0-37.0) g/dL RDW (11.5-15.5) % Plt Count (150-450) k/uL MPV Neutrophils % % Lymphocytes % % Monocytes % % Eosinophils % % Basophils % % Neutrophils # (1.3-7.7) k/uL Lymphocytes # (1.0-4.8) k/uL Monocytes # (0-1.0) k/uL Eosinophils # (0-0.7) k/uL Basophils # (0-0.2) k/uL PT (10.0-12.5) sec INR (<1.2) APTT (22.0-30.0) sec D-Dimer (<0.60) mg/L FEU Sodium 138 (137-145) mmol/L Potassium 3.9 (3.5-5.1) mmol/L Chloride 105 (98-107) mmol/L Carbon Dioxide 29 (22-30) mmol/L Anion Gap 4 mmol/L BUN 13 (9-20) mg/dL Creatinine 0.69 (0.66-1.25) mg/dL Est GFR (CKD-EPI)AfAm >90 (>60 ml/min/1.73 sqM) Est GFR (CKD-EPI)NonAf >90 (>60 ml/min/1.73 sqM) Glucose 127 H (74-99) mg/dL Calcium 10.2 (8.4-10.2) mg/dL Magnesium 1.7 (1.6-2.3) mg/dL Total Bilirubin 0.4 (0.2-1.3) mg/dL AST 21 (17-59) U/L ALT 17 (4-49) U/L Alkaline Phosphatase 72 (38-126) U/L Troponin I <0.012 (0.000-0.034) ng/mL NT-Pro-B Natriuret Pep 44 pg/mL Total Protein 5.9 L (6.3-8.2) g/dL Albumin 3.5 (3.5-5.0) g/dL Influenza Type A (PCR) (Not Detectd) Influenza Type B (PCR) (Not Detectd) RSV (PCR) (Not Detectd) SARS-CoV-2 (PCR) (Not Detectd) - EKG Data -: EKG Interpreted by Me (EKG is sinus 78 NM 133 QRS 110 QTc 401) - Radiology Data Radiology results: report reviewed (Chest x-ray CTA chest bilateral multifocal pneumonia), image reviewed Disposition Clinical Impression: Acute upper respiratory infection, Bilateral pneumonia Disposition: ADMITTED IP TO THIS HOSP Condition: Serious Is patient prescribed a controlled substance at d/c from ED?: No Time of Disposition: 23:55
--- NOTE | 2024-02-23 21:48 | XR ---
EXAMINATION TYPE: XR chest 2V DATE OF EXAM: 02/23/2024 COMPARISON: Prior chest x-ray January 20, 2024 and older studies HISTORY: Cough TECHNIQUE: Frontal and lateral views of the chest are obtained. FINDINGS: Persistent bilateral multifocal areas of increased opacity. No pleural effusion or pneumot horax seen bilaterally. The cardiac silhouette size remains within normal limits. The osseous stru ctures are intact. IMPRESSION: Bilateral multifocal acute infiltrates and/or edema redemonstrated similar to most recen t prior. Correlate for infectious process.
[2024-02-23] MEDS: SODIUM CHLORIDE 0.9% 1,000 ML IV STA (22:25)
[2024-02-23 22:32] LABS: Basophils % (A) 1 %; Eosinophils # (A) 0.3 k/uL (0-0.7); Eosinophils % (A) 4 %; HCT 48.3 % (39.0-53.0); HGB 15.7 gm/dL (13.0-17.5); Lymphocytes # (A) 2.3 k/uL (1.0-4.8); Lymphocytes % (A) 29 %; MCH 29.1 pg (25.0-35.0); MCHC 32.5 g/dL (31.0-37.0); MCV 89.5 fL (80.0-100.0); Mean Platelet Volume 7.3; Monocytes # (A) 0.6 k/uL (0-1.0); Monocytes % (A) 8 %; Neutrophils # (A) 4.5 k/uL (1.3-7.7); Neutrophils % (A) 57 %; Platelet Count 267 k/uL (150-450); RBC 5.39 m/uL (4.30-5.90); RDW 12.8 % (11.5-15.5); WBC 7.8 k/uL (3.8-10.6)
[2024-02-23 22:45] LABS: ALT 17 U/L (4-49); AST 21 U/L (17-59); African American GFR (CKD) >90 (>60 ml/min/1.73 sqM); Albumin 3.5 g/dL (3.5-5.0); Alkaline Phosphatase 72 U/L (38-126); Anion Gap 4 mmol/L; Blood Urea Nitrogen 13 mg/dL (9-20); Calcium 10.2 mg/dL (8.4-10.2); Carbon Dioxide 29 mmol/L (22-30); Chloride 105 mmol/L (98-107); Glucose 127 mg/dL (74-99); Magnesium 1.7 mg/dL (1.6-2.3); Non-African American GFR(CKD) >90 (>60 ml/min/1.73 sqM); Potassium 3.9 mmol/L (3.5-5.1); Sodium 138 mmol/L (137-145); Total Bilirubin 0.4 mg/dL (0.2-1.3); Total Protein 5.9 g/dL (6.3-8.2)
[2024-02-23 22:51] LABS: INR 0.9 (<1.2); Prothrombin Time 10.3 sec (10.0-12.5)
[2024-02-23 22:54] LABS: NT-Pro-B-Type Natriuretic Pept 44 pg/mL
[2024-02-23] MEDS: AZITHROMYCIN 500 MG TAB PO STA (22:57)
[2024-02-23] MEDS: PIPERACILLIN-TAZOBACTAM 3.375 GM in SODIUM CHLORIDE 0.9% 100 ML IVPB STA (22:57)
[2024-02-23] MEDS: dexAMETHasone 2 MG TAB PO STA (22:57)
[2024-02-23] MEDS: BENZONATATE 100 MG CAP PO STA (22:58)
--- NOTE | 2024-02-23 23:28 | CT ---
EXAMINATION TYPE: CT angio chest DATE OF EXAM: 02/23/2024 COMPARISON: NONE HISTORY: cough congestion abnormal chest xray, hx of CA and CVA, hernia repair. iso [address] DLP: 430.2 mGycm. Automated Exposure Control for Dose Reduction was Utilized. CONTRAST: CTA scan of the thorax is performed with IV Contrast, patient injected with 100 mL of Isovue 370, pul monary embolism protocol. MIP Images are created on CT scanner and reviewed. FINDINGS: LUNGS: Persistent bilateral multifocal groundglass opacities slightly more prominent in the upper jacinda gs. No pleural effusion or pneumothorax seen bilaterally. MEDIASTINUM: Slightly suboptimal study with most dense contrast in the SVC. No CT evidence for acute pulmonary embolism. Some enhancement aorta without aneurysm or dissection. There are enlarged bilater al hilar lymph nodes. There is enlarged subcarinal and AP window lymph node axial image 57. No cardio megaly or pericardial effusion is seen. OTHER: No additional significant abnormality is seen. IMPRESSION: 1. Bilateral multifocal groundglass opacities slightly more prominent in the upper lobes. Acute infec tious process is suspected. Differential includes COVID-19 infection. Reactive thoracic adenopathy is present. 2. No acute pulmonary embolism.
[2024-02-23] MEDS: LEVOFLOXACIN 750MG-D5W PMX 750 MG in DEXTROSE/WATER 1 150ML.BAG IVPB STA (23:41)
[2024-02-23] MEDS ORDERED: ALBUTEROL NEBULIZED 2.5 MG/3 ML INHALATION PRN (23:51)
[2024-02-23] MEDS ORDERED: PNEUMONIA PROTOCOL UTILIZED 1 EACH MISC PO PRN (23:51)
[2024-02-24] MEDS: IPRATROPIUM-ALBUTEROL 3 ML NEB INHALATION STA (00:10)
[2024-02-24] MEDS: PIPERACILLIN-TAZOBACTAM 3.375 GM in SODIUM CHLORIDE 0.9% 100 ML IVPB SCH (04:39)
[2024-02-24] MEDS ORDERED: guaiFENesin-DM 100-10MG/5ML 10 ML CUP PO PRN (06:23)
--- NOTE | 2024-02-24 06:44 | P.CNPUL ---
History of Present Illness Consult date: 02/24/24 Requesting physician: Curtis Combs Reason for consult: pneumonia Chief complaint: Shortness of breath and cough History of present illness: Patient is a 38-year-old white male with past medical history significant for polysubstance abuse and current ongoing tobacco dependence., Patient previously was intubated and had a stay in the intensive care unit last year after a methamphetamine overdose. More recently, patient visited the emergency department on 01/20/2024 for evaluation of a persistent cough, fevers, and shortness of breath. Reportedly diagnosed with pneumonia, and he was sent home with a course of antibiotics. Patient states he completed all of his antibiotics. Reportedly initially felt well for 2 to 3 days. Unfortunately, he continues to experience a persistent congested cough which is overall nonproductive and associated shortness of breath. Shortness of breath is particularly bothersome with exertion. Denies any fevers. Denies any GI symptoms such as nausea or vomiting, diarrhea, abdominal pain. Denies chest pain or hemoptysis. He is currently resting comfortably on room air, in no acute respiratory distress. Follow-up chest x-ray in the emergency department did not show any improvement in his diffuse bilateral interstitial infiltrates. Chest CTA done on this visit did not show any acute pulmonary embolism. It did show bilateral multifocal groundglass opacities slightly more prominent in the upper lobes. Acute infectious process was suspected. Did test negative for influenza A, influenza B, RSV, COVID. He denies any sick contacts. Denies any recent travel. CBC unremarkable. No leukocytosis. BMP also unremarkable. Troponin less than 0.012. NT proBNP low. EKG shows normal sinus rhythm without any obvious acute ischemic changes. He has been covered on a combination of Levaquin and Zosyn. Currently afebrile. Vital signs are stable. Review of Systems REVIEW OF SYSTEMS: CONSTITUTIONAL: Denies any recent significant weight loss or weight gain. EYES: Denies change in vision. EARS, NOSE, MOUTH, THROAT: Admits occasional self-limiting headaches, denies sore throat. CARDIOVASCULAR: Denies chest pain, palpitations or syncopal episodes. RESPIRATORY: See HPI GASTROINTESTINAL: Denies change in appetite, abdominal pain, nausea and vomiting, or diarrhea GENITOURINARY: Denies hematuria, denies infections. MUSKULOSKELETAL: Denies pain, denies swelling. INTEGUMENTARY: Denies rash, denies eczema. NEUROLOGICAL: Denies recent memory loss, no recent seizure activity. PSYCHIATRIC: Denies anxiety, denies depression. HEMATOLOGIC/LYMPHATIC: Denies anemia, denies enlarged lymph node Past Medical History Past Medical History: CVA/TIA, Myocardial Infarction ([place]) Additional Past Medical History / Comment(s): Hernia surgery in 1999, rib fratures/collaped lungs in 2005 Last Myocardial Infarction Date:: [place] January of 2023 History of Any Multi-Drug Resistant Organisms: None Reported Past Surgical History: Hernia Repair Past Psychological History: No Psychological Hx Reported Smoking Status: Current every day smoker, Vaper Past Alcohol Use History: Occasional Past Drug Use History: None Reported - Past Family History Mother Family Medical History: Unable to Obtain Medications and Allergies Home Medications Medication Instructions Recorded Confirmed Type Albuterol Sulfate [Ventolin HFA] 1 - 2 puff INHALATION RT-Q6H PRN 02/24/24 02/24/24 History Allergies Allergy/AdvReac Type Severity Reaction Status Date / Time No Known Allergies Allergy Verified 02/24/24 08:55 Physical Exam Vitals: Vital Signs Temp Pulse Pulse Resp BP BP Pulse Ox 02/24/24 00:33 97.4 F L 90 18 136/77 93 L 02/24/24 00:27 76 02/24/24 00:20 97.9 F 83 18 117/62 96 02/24/24 00:10 76 02/23/24 23:12 99 22 126/93 98 02/23/24 23:00 97.6 F 92 22 02/23/24 21:25 18 02/23/24 21:13 97.4 F L 90 18 128/85 97 Intake and Output 02/23/24 02/23/24 02/24/24 14:59 22:59 06:59 Other: # Voids 1 Weight 83.915 kg 83.915 kg GENERAL EXAM: Alert, 38-year-old white male, comfortable in no apparent distress. HEAD: Normocephalic and atraumatic EYES: Normal reaction of pupils, equal size. NOSE: Clear with pink turbinates. THROAT: No erythema or exudates. NECK: No masses, no JVD. CHEST: No chest wall deformity. LUNGS: Equal air entry with no crackles, wheeze, rhonchi or dullness. On room air. No conversational dyspnea or accessory muscle use.. CVS: S1 and S2 normal with no audible murmur, regular rhythm. No extra heart sounds ABDOMEN: No hepatosplenomegaly, active bowel sounds, no guarding or rigidity. SPINE: No scoliosis or deformity SKIN: No rashes CENTRAL NERVOUS SYSTEM: No focal deficits, tone is normal in all 4 extremities. EXTREMITIES: There is no peripheral edema, clubbing, or cyanosis. Peripheral pulses are intact. Results - Laboratory Findings CBC and BMP: 02/23/24 22:10 02/23/24 22:10 PT/INR, D-dimer PT 10.3 sec (10.0-12.5) 02/23/24 22:10 INR 0.9 (<1.2) 02/23/24 22:10 D-Dimer 0.27 mg/L FEU (<0.60) 02/23/24 22:10 Abnormal lab findings: Abnormal Labs 02/23/24 22:10 Glucose 127 H Total Protein 5.9 L - Diagnostic Findings Chest x-ray: image reviewed CT scan - chest: image reviewed Assessment and Plan Assessment: Suspect bilateral community-acquired pneumonia, possible viral/atypical pneumonia. Chest CTA showed bilateral multifocal groundglass opacities slightly more prominent in upper lobes. Reactive thoracic adenopathy noted. Acute infectious process suspected. Viral panel negative for influenza A/B, RSV, COVID. Consider drug-induced hypersensitivity pneumonitis/alveoliti s.Bronchiolitis obliterans with organizing pneumonia cannot be completely excluded Acute dyspnea, secondary to above Chronic ongoing tobacco dependence, reportedly smokes 1 pack/day History of polysubstance abuse Plan: Patient's medications, labs, imaging reviewed On room air Continue combination of empiric antibiotics. Check procalcitonin level Check urine Legionella antigen Add Robitussin DM for cough We will continue to follow, and additional recommendations are forthcoming I have personally seen and examined the patient, performed the documentation and the assessment and plan as written. Number of minutes spent on the visit:20 On 02/24/2024, the patient is being seen in a joint evaluation along with the nurse practitioner. This evaluation was done more than 30 minutes. In summary, this patient is being seen for a follow-up for shortness of breath and bilateral pneumonia. The patient has diffuse moderate bilateral pulmonary infiltrates. His oxygenation is stable and the patient is currently on room air oxygen with a pulse ox of 97%. Nevertheless, the CT of the chest showed extensive bilateral nodular pulmonary infiltrates with areas of groundglass and reactive lymphad enopathy. Noted the white cell count of 7.8, normal coagulation profile, D- dimer is not elevated, electrolytes are all stable. Urine drug screen was conducted today and the patient is positive for cocaine. Amphetamines are essentially negative. The patient remains on Levaquin and Zosyn as a broad- spectrum antibiotic coverage. Patient remains on albuterol nebulized treatments on a as needed basis. He is on Robitussin DM for cough and congestion. As such, the exact nature of the pulmonary filtrates is not clear to me at this point. A follow-up chest x-ray remains unchanged, will need further investigation including a bronchoscopy endobronchial lavage.. Awaiting blood cultures. Obtain echocardiogram. Will continue to follow. Time with Patient: Greater than 30
--- NOTE | 2024-02-24 07:56 | XR ---
EXAMINATION TYPE: XR chest 2V DATE OF EXAM: 02/24/2024 COMPARISON: 02/23/2024 HISTORY: 38-year-old male pneumonia TECHNIQUE: PA and lateral views FINDINGS: Heart normal size. Hyperinflation. Medium interstitial opacities are present throughout the lungs. No progressive consolidation or pleural effusion. IMPRESSION: COPD with abnormal interstitial findings. Consider atypical infections or atypical pneumonias. Pulmon armand medicine evaluation if no established diagnosis.
--- NOTE | 2024-02-24 13:14 | P.HPIM ---
History of Present Illness H&P Date: 02/24/24 History of present illness; patient is a 38-year-old gentleman past medical history significant for polysubstance abuse presented to the hospital for shortness of breath and feeling not well for the last 2 days. Patient stated that he was all right a few days ago and started noticing that he was getting short of breath. Shortness of breath was initially present on exertion but gradually progressed and is now present at rest and on exertion. Patient also complaining of cough which is nonproductive. Denies any chest pain. There is no complaint of fever or chills. There is no current nausea, vomiting abdominal pain.. Because of the symptoms, patient came to the ER Initial lab work done in the ER showed WBC 9.8, hemoglobin 10.7, platelet count 267, D-dimer 0.27, sodium 130, potassium 3.9, BUN 13, creatinine 0.69, glucose 127, calcium 9.2, magnesium 1.7, AST 21, ALT 17, Pro-Demarcus 0.05 Influenza A not detected Influenza B not detected RSV not detected COVID-19 not detected EKG done in the ER showed heart rate of 78, no ST segment elevation or depression seen, no T-wave inversions seen. Chest x-ray done in the ER showed bilateral multifocal acute infiltrates/edema CTA chest done showed bilateral multifocal groundglass opacities slightly more prominent in the upper lobes, no PE Patient admitted to internal medicine service REVIEW OF SYSTEMS: CONSTITUTIONAL: No fever, no malaise, no fatigue. HEENT: No recent visual problems or hearing problems. Denied any sore throat. CARDIOVASCULAR: As mentioned above PULMONARY: As mentioned above GASTROINTESTINAL: No diarrhea, no nausea, no vomiting, no abdominal pain. NEUROLOGICAL: No headaches, no weakness, no numbness. HEMATOLOGICAL: Denies any bleeding or petechiae. GENITOURINARY: Denies any burning micturition, frequency, or urgency. MUSCULOSKELETAL/RHEUMATOLOGICAL: Denies any joint pain, swelling, or any muscle pain. ENDOCRINE: Denies any polyuria or polydipsia. The rest of the 14-point review of systems is negative. PHYSICAL EXAMINATION: GENERAL: The patient is alert and oriented x3, not in any acute distress. Well developed, well nourished. HEENT: Pupils are round and equally reacting to light. EOMI. No scleral icterus. No conjunctival pallor. Normocephalic, atraumatic. No pharyngeal erythema. No thyromegaly. CARDIOVASCULAR: S1 and S2 present. No murmurs, rubs, or gallops. PULMONARY: Chest is clear to auscultation, no wheezing or crackles. ABDOMEN: Soft, nontender, nondistended, normoactive bowel sounds. No palpable organomegaly. MUSCULOSKELETAL: No joint swelling or deformity. EXTREMITIES: No cyanosis, clubbing, or pedal edema. NEUROLOGICAL: Gross neurological examination did not reveal any focal deficits. SKIN: No rashes. Assessment and plan Bacterial pneumonia Respiratory distress History of pulseless abuse Tobacco addiction Monitor vital signs Monitor CBC Monitor CMP Continue telemetry monitoring Ordered blood cultures Ordered sputum cultures Started IV Zosyn Ordered breathing treatments Aggressive bronchopulmonary hygiene Encourage use of I-S Continue Tessalon Perles Consult pulmonary Consult ID Labs and medication were reviewed.. Continue same treatment. Continue with symptomatic treatment. Resume home medication. Monitor labs and vitals. DVT and GI prophylaxis. Further recommendations as per clinical course of the patient Dictation was produced using [employer] dictation software. please excuse any grammatical, word or spelling errors. Past Medical History Past Medical History: CVA/TIA, Myocardial Infarction ([place]) Additional Past Medical History / Comment(s): Hernia surgery in 1999, rib fratu res/collaped lungs in 2005 Last Myocardial Infarction Date:: [place] January of 2023 History of Any Multi-Drug Resistant Organisms: None Reported Past Surgical History: Hernia Repair Past Psychological History: No Psychological Hx Reported Smoking Status: Current every day smoker, Vaper Past Alcohol Use History: Occasional Past Drug Use History: None Reported - Past Family History Mother Family Medical History: Unable to Obtain Medications and Allergies Home Medications Medication Instructions Recorded Confirmed Type Albuterol Sulfate [Ventolin HFA] 1 - 2 puff INHALATION RT-Q6H PRN 02/24/24 02/24/24 History Allergies Allergy/AdvReac Type Severity Reaction Status Date / Time No Known Allergies Allergy Verified 02/24/24 08:55 Physical Exam Vitals: Vital Signs Temp Pulse Pulse Resp BP BP Pulse Ox 02/24/24 07:29 97.9 F 71 19 118/75 96 02/24/24 00:33 97.4 F L 90 18 136/77 93 L 02/24/24 00:27 76 02/24/24 00:20 97.9 F 83 18 117/62 96 02/24/24 00:10 76 02/23/24 23:12 99 22 126/93 98 02/23/24 23:00 97.6 F 92 22 02/23/24 21:25 18 02/23/24 21:13 97.4 F L 90 18 128/85 97 Intake and Output 02/23/24 02/24/24 02/24/24 22:59 06:59 14:59 Other: # Voids 1 Weight 83.915 kg 83.915 kg Results CBC & Chem 7: 02/23/24 22:10 02/23/24 22:10 Labs: Abnormal Lab Results - Last 24 Hours (Table) 02/23/24 Range/Units 22:10 Glucose 127 H (74-99) mg/dL Total Protein 5.9 L (6.3-8.2) g/dL Thrombosis Risk Factor Assmnt - Choose All That Apply Any of the Below Risk Factors Present?: No Other Risk Factors: No Thrombosis Risk Factor Assessment Level: Very Low Risk
[2024-02-24 15:42] LABS: Amphetamine Screen,Urine Not Detected (NotDetected); Barbiturate Screen,Urine Not Detected (NotDetected); Benzodiazepines Screen,Urine Not Detected (NotDetected); Cocaine Screen,Urine Detected (NotDetected); Methadone Screen, Urine Not Detected (NotDetected); Opiate Screen,Urine Detected (NotDetected); Oxycodone Screen, Urine Not Detected (NotDetected); Phencyclidine Screen,Urine Not Detected (NotDetected); Tricyclic Antidepressant,Urine Not Detected (NotDetected); Urn Cannabinoid Scrn Not Detected (NotDetected)
[2024-02-24] MEDS: LEVOFLOXACIN 750MG-D5W PMX 750 MG in DEXTROSE/WATER 1 150ML.BAG IVPB SCH (21:08)
--- NOTE | 2024-02-24 22:30 | P.CONS ---
History of Present Illness - Reason for Consult Consult date: 02/24/24 Bilateral pneumonia Requesting physician: John Kamara - Chief Complaint Shortness of breath x 2 weeks - History of Present Illness Patient is a 38-year-old male with a past medical history significant for [place] CVA TIA history of rib fractures/collapsed lung in 2005 current everyday smoker mention started getting sick about a month ago and the patient apparently was seen here in the ER has been diagnosed with a pneumonia discharged home on oral antibiotic patient mention he did felt better initially however symptoms started getting back about 2 weeks ago and has been mostly increasing shortness of breath that has been progressive getting worse worse with exertion or activity than at rest patient is having any chest pain he did have a minimal congested cough but not bring up any sputum denies having any nausea vomiting no abdominal pain or any diarrhea with the symptoms the patient has been evaluated on presentation to the hospital patient has been afebrile and no fever have been recorded subsequently patient was not tachycardic hypotensive or hypoxic and no need for supplemental oxygen patient did have a white count of 7.8 with no left shift creatinine 0.6 electrolyte has been normal, liver enzymes are normal urine testing positive for opiates and cocaine influenza RSV COVID testing negative troponins are negative patient did have a chest x-ray bilateral multifocal acute infiltrates and or edema redemonstrated similar to most recent prior correlate for infectious process patient subsequently did have CT angiogram of the chest bilateral multifocal groundglass opacity slightly more prominent in the upper lobes acute infection process is suspected differential clues COVID-19 infection and reactive thoracic adenopathy no acute pulmonary embolism patient has been started on Zosyn and Levaquin infectious disease has been consulted for further management of antibiotic therapy Review of Systems Positive point and negatives has been mentioned in the HPI, complete review of systems was performed and all other systems are negative Past Medical History Past Medical History: CVA/TIA, Myocardial Infarction ([place]) Additional Past Medical History / Comment(s): Hernia surgery in 1999, rib fratures/collaped lungs in 2005 Last Myocardial Infarction Date:: [place] January of 2023 History of Any Multi-Drug Resistant Organisms: None Reported Past Surgical History: Hernia Repair Past Psychological History: No Psychological Hx Reported Smoking Status: Current every day smoker, Vaper Past Alcohol Use History: Occasional Past Drug Use History: None Reported - Past Family History Mother Family Medical History: Unable to Obtain Medications and Allergies Home Medications Medication Instructions Recorded Confirmed Type Albuterol Sulfate [Ventolin HFA] 1 - 2 puff INHALATION RT-Q6H PRN 02/24/24 02/24/24 History Allergies Allergy/AdvReac Type Severity Reaction Status Date / Time No Known Allergies Allergy Verified 02/24/24 08:55 Physical Exam Vitals: Vital Signs Temp Pulse Pulse Resp BP BP Pulse Ox 02/24/24 07:29 97.9 F 71 19 118/75 96 02/24/24 00:33 97.4 F L 90 18 136/77 93 L 02/24/24 00:27 76 02/24/24 00:20 97.9 F 83 18 117/62 96 02/24/24 00:10 76 02/23/24 23:12 99 22 126/93 98 02/23/24 23:00 97.6 F 92 22 02/23/24 21:25 18 02/23/24 21:13 97.4 F L 90 18 128/85 97 Intake and Output 02/23/24 02/24/24 02/24/24 22:59 06:59 14:59 Other: # Voids 1 Weight 83.915 kg 83.915 kg GENERAL DESCRIPTION: Middle-aged male lying in bed, no distress. No tachypnea or accessory muscle of respiration use. HEENT: Shows Pallor , no scleral icterus. Oral mucous membrane is dry. No pharyngeal erythema or thrush NECK: Trachea central, no thyromegaly. LUNGS: Unlabored breathing. Decreased intensity of breath sounds. No wheeze HEART: S1, S2, regular rate and rhythm. No loud murmur ABDOMEN: Soft, no tenderness , guarding or rigidity, no organomegaly EXTREMITIES: No edema of feet. SKIN: No rash, no masses palpable. NEUROLOGICAL: The patient is awake, alert, oriented x3, mood and affect normal. Results CBC & Chem 7: 02/23/24 22:10 02/23/24 22:10 Labs: Abnormal Lab Results - Last 24 Hours (Table) 02/23/24 Range/Units 22:10 Glucose 127 H (74-99) mg/dL Total Protein 5.9 L (6.3-8.2) g/dL Assessment and Plan (1) Abnormal CT scan, chest Status: Acute Code(s): R93.89 - ABNORMAL FINDINGS ON DX IMAGING OF OTH BODY STRUCTURES SNOMED Code(s): 96167560035296225 (2) Bilateral pneumonia Status: Acute Code(s): J18.9 - PNEUMONIA, UNSPECIFIED ORGANISM SNOMED Code(s): 250901241 Plan: 1patient presented hospital with increasing shortness of breath. Has been getting worse for the last 2 weeks in this patient with abnormal chest x-ray as well as CT angiogram of the chest concerning for diffuse infiltrate with a question of infectious was no infectious etiology increase of infectious etiology would be more likely viral as the patient did not have any fever or elevated white count and did have normal procalcitonin versus noninfectious etiology such as cardiac causes 2-we will repeat his COVID-19 nasopharyngeal swab 3-check an echocardiogram 4-try to obtain a sputum We will follow on clinical condition and cultures to further adjust medication if needed Thank you for this consultation we will follow the patient along with you Dictation was produced using [employer] dictation software. please excuse any grammatical, word or spelling errors. Time with Patient: Greater than 30
[2024-02-24] MEDS: methylPREDNISolone SOD SUCCI 40 MG/ML 1 ML VIAL IV SCH (22:56)
--- NOTE | 2024-02-25 07:06 | CA ---
Transthoracic Echo Report Name: Steve Machado Age: 38 Gender: M : 1985 Exam Date: 02/24/2024 11:25 Exam Location: [facility] Ht (in): 72 Wt (lb): 185 Ordering Physician: John Kamara MD Attending/Referring Phys: Finance Advisor Danielle Watson RDCS Procedure CPT: Indications: SHORTNESS OF BREATH Cardiac Hx: Technical Quality: Good Contrast 1: Total Dose (mL): Contrast 2: Total Dose (mL): MEASUREMENTS (Male / Female) Normal Values 2D ECHO LV Diastolic Diameter PLAX 4.2 cm 4.2 - 5.9 / 3.9 - 5.3 cm LV Systolic Diameter PLAX 2.5 cm IVS Diastolic Thickness 1.2 cm 0.6 - 1.0 / 0.6 - 0.9 cm LVPW Diastolic Thickness 1.2 cm 0.6 - 1.0 / 0.6 - 0.9 cm LV Relative Wall Thickness 0.6 RV Internal Dim ED PLAX 3.5 cm LA Systolic Diameter LX 3.2 cm 3.0 - 4.0 / 2.7 - 3.8 cm LV Diastolic Volume MOD 4C 91.3 cm??? LV Systolic Volume MOD 4C 40.0 cm??? LV Ejection Fraction MOD 4C 56.2 % LV Cardiac Index MOD 4C 1833.6 cm???/min???m??? LV Diastolic Length 4C 9.2 cm LV Systolic Length 4C 7.4 cm LV Diastolic Volume MOD 2C 90.2 cm??? LV Systolic Volume MOD 2C 31.0 cm??? LV Ejection Fraction MOD 2C 65.6 % LV Cardiac Index MOD 2C 2115.8 cm???/min???m??? LV Diastolic Length 2C 9.0 cm LV Systolic Length 2C 7.8 cm LA Volume 43.6 cm??? 18 - 58 / 22 - 52 cm??? LA Volume Index 21.0 cm???/m??? 16 - 28 cm???/m??? M-MODE IVS Diastolic Thickness MM 3.4 cm 0.6 - 1.0 / 0.6 - 0.9 cm Aortic Root Diameter MM 2.9 cm AV Cusp Separation MM 2.3 cm DOPPLER MV Area PHT 3.3 cm??? Mitral E Point Velocity 74.5 cm/s Mitral A Point Velocity 52.4 cm/s Mitral E to A Ratio 1.4 MV Deceleration Time 230.2 ms MV E' Velocity 19.1 cm/s Mitral E to MV E' Ratio 3.9 FINDINGS Left Ventricle Left ventricular ejection fraction is estimated at 55-60 %. Left ventricular cavity size normal. Mildly increased septal wall thickness. Right Ventricle Mild right ventricular dilatation. Unable to estimate the right ventricular systolic pressure.prominent moderator band in right ventricle (normal variant). Right Atrium Normal right atrial size. No right atrial thrombus or mass seen. Left Atrium Normal left atrial size. No left atrial thrombus or mass present. Mitral Valve Structurally normal mitral valve. No mitral stenosis, or prolapse.mild mitral regurgitation. Aortic Valve Trileaflet aortic valve. No aortic valve stenosis or regurgitation. Tricuspid Valve Structurally normal tricuspid valve. No tricuspid stenosis, or prolapse.trace to mild tricuspid regurgitation. Pulmonic Valve Structurally normal pulmonic valve. No pulmonic regurgitation. Pericardium No pericardial effusion. Aorta Normal size aortic root and proximal ascending aorta. CONCLUSIONS 1. Normal left ventricular size and systolic function 2. Mild mitral regurgitation Previewed by: Dr. Benita Moses MD (Electronically Signed) Final Date: 25 February 2024 07:06
--- NOTE | 2024-02-25 12:57 | XR ---
EXAMINATION TYPE: XR chest 2V DATE OF EXAM: 02/25/2024 COMPARISON: 02/24/2024 HISTORY: 38-year-old male shortness of breath, pneumonia TECHNIQUE: PA and lateral views FINDINGS: The cardiomediastinal silhouette, aorta, and pulmonary vasculature are within normal limits. Ongoing diffuse medium reticular/interstitial changes. IMPRESSION: Ongoing bilateral interstitial infiltrates. Correlate for atypical pneumonia/infections.
--- NOTE | 2024-02-25 13:50 | P.PN ---
Subjective Progress Note Date: 02/25/24 patient is a 38-year-old gentleman past medical history significant for polysubstance abuse presented to the hospital for shortness of breath and feeling not well for the last 2 days. Patient stated that he was all right a few days ago and started noticing that he was getting short of breath. Shortness of breath was initially present on exertion but gradually progressed and is now present at rest and on exertion. Patient also complaining of cough which is nonproductive. Denies any chest pain. There is no complaint of fever or chills. There is no current nausea, vomiting abdominal pain.. Because of the symptoms, patient came to the ER Initial lab work done in the ER showed WBC 9.8, hemoglobin 10.7, platelet count 267, D-dimer 0.27, sodium 130, potassium 3.9, BUN 13, creatinine 0.69, glucose 127, calcium 9.2, magnesium 1.7, AST 21, ALT 17, Pro-Demarcus 0.05 Influenza A not detected Influenza B not detected RSV not detected COVID-19 not detected EKG done in the ER showed heart rate of 78, no ST segment elevation or depression seen, no T-wave inversions seen. Chest x-ray done in the ER showed bilateral multifocal acute infiltrates/edema CTA chest done showed bilateral multifocal groundglass opacities slightly more prominent in the upper lobes, no PE Patient admitted to internal medicine service 02/24. Patient seen and examined. Still complaining of shortness of breath on exertion. Complaining of cough REVIEW OF SYSTEMS: CONSTITUTIONAL: No fever, no malaise,. CARDIOVASCULAR: No chest pain, no palpitations, no syncope. PULMONARY: As mentioned above GASTROINTESTINAL: No diarrhea, no nausea, no vomiting, no abdominal pain. NEUROLOGICAL: No headaches, no weakness, PHYSICAL EXAMINATION: GENERAL: The patient is alert and oriented x3, not in any acute distress. Well developed, well nourished. HEENT: Pupils are round and equally reacting to light. EOMI. No scleral icterus. No conjunctival pallor. Normocephalic, atraumatic. No pharyngeal erythema. No thyromegaly. CARDIOVASCULAR: S1 and S2 present. No murmurs, rubs, or gallops. PULMONARY: Chest is clear to auscultation, no wheezing or crackles. ABDOMEN: Soft, nontender, nondistended, normoactive bowel sounds. No palpable organomegaly. MUSCULOSKELETAL: No joint swelling or deformity. EXTREMITIES: No cyanosis, clubbing, or pedal edema. NEUROLOGICAL: Gross neurological examination did not reveal any focal deficits. SKIN: No rashes. Assessment and plan Bacterial pneumonia Respiratory distress History of pulseless abuse Tobacco addiction Monitor vital signs Monitor CBC Monitor CMP Continue telemetry monitoring Ordered blood cultures Ordered sputum cultures Continue IV Zosyn and Levaquin 2D echo done showed normal LV size and function, mild mitral regurg Ordered breathing treatments Aggressive bronchopulmonary hygiene Encourage use of I-S Continue Tessalon Perles Pulmonary following ID following Labs and medication were reviewed.. Continue same treatment. Continue with symptomatic treatment. Resume home medication. Monitor labs and vitals. DVT and GI prophylaxis. Further recommendations as per clinical course of the patient Dictation was produced using [employer] dictation software. please excuse any grammatical, word or spelling errors. Objective - Vital Signs Vital signs: Vital Signs Temp 98.7 F 02/25/24 07:13 Pulse 95 02/25/24 07:13 Resp 16 02/25/24 07:13 BP 129/78 02/25/24 07:13 Pulse Ox 97 02/25/24 07:13 FiO2 Intake & Output 02/24/24 02/25/24 02/25/24 18:59 06:59 18:59 Other: Voiding Method Toilet Toilet # Voids 5 1 - Labs CBC & Chem 7: 02/23/24 22:10 02/23/24 22:10 Labs: Abnormal Lab Results - Last 24 Hours (Table) 02/24/24 Range/Units 15:08 Urine Opiates Screen Detected H (NotDetected) Urine Cocaine Screen Detected H (NotDetected)
--- NOTE | 2024-02-25 15:10 | P.PN ---
Subjective Progress Note Date: 02/25/24 Patient is a 38-year-old white male with past medical history significant for polysubstance abuse and current ongoing tobacco dependence., Patient previously was intubated and had a stay in the intensive care unit last year after a methamphetamine overdose. More recently, patient visited the emergency department on 01/20/2024 for evaluation of a persistent cough, fevers, and shortness of breath. Reportedly diagnosed with pneumonia, and he was sent home with a course of antibiotics. Patient states he completed all of his antibiotics. Reportedly initially felt well for 2 to 3 days. Unfortunately, he continues to experience a persistent congested cough which is overall nonproductive and associated shortness of breath. Shortness of breath is particularly bothersome with exertion. Denies any fevers. Denies any GI symptoms such as nausea or vomiting, diarrhea, abdominal pain. Denies chest pain or hemoptysis. He is currently resting comfortably on room air, in no acute respiratory distress. Follow-up chest x-ray in the emergency department did not show any improvement in his diffuse bilateral interstitial infiltrates. Chest CTA done on this visit did not show any acute pulmonary embolism. It did show bilateral multifocal groundglass opacities slightly more prominent in the upper lobes. Acute infectious process was suspected. Did test negative for influenza A, influenza B, RSV, COVID. He denies any sick contacts. Denies any recent travel. CBC unremarkable. No leukocytosis. BMP also unremarkable. Troponin less than 0.012. NT proBNP low. EKG shows normal sinus rhythm without any obvious acute ischemic changes. He has been covered on a combination of Levaquin and Zosyn. Currently afebrile. Vital signs are stable. On today's evaluation of 02/25/2024, patient is still having some cough and exertional dyspnea. No oxygen desaturations. Urine drug screen was positive f or cocaine. Legionella urine antigen was negative. COVID-19 was negative. Procalcitonin level was at 0.5. No other labs are available from today. The patient blood cultures have been negative. The patient remains on Levaquin. IV Solu-Medrol was added yesterday. Repeat chest x-ray was done today and this was reviewed and compared to the earlier chest x-rays and there is ongoing bilateral system infiltrates with probable interval improvement. Objective - Vital Signs Vital signs: Vital Signs Temp 98.7 F 02/25/24 07:13 Pulse 95 02/25/24 07:13 Resp 16 02/25/24 07:13 BP 129/78 02/25/24 07:13 Pulse Ox 97 02/25/24 07:13 FiO2 Intake & Output 02/24/24 02/25/24 02/25/24 18:59 06:59 18:59 Other: Voiding Method Toilet Toilet # Voids 5 1 - Exam GENERAL EXAM: Alert, 38-year-old white male, comfortable in no apparent distress. HEAD: Normocephalic and atraumatic EYES: Normal reaction of pupils, equal size. NOSE: Clear with pink turbinates. THROAT: No erythema or exudates. NECK: No masses, no JVD. CHEST: No chest wall deformity. LUNGS: Equal air entry with no crackles, wheeze, rhonchi or dullness. On room air. No conversational dyspnea or accessory muscle use.. CVS: S1 and S2 normal with no audible murmur, regular rhythm. No extra heart sounds ABDOMEN: No hepatosplenomegaly, active bowel sounds, no guarding or rigidity. SPINE: No scoliosis or deformity SKIN: No rashes CENTRAL NERVOUS SYSTEM: No focal deficits, tone is normal in all 4 extremities. EXTREMITIES: There is no peripheral edema, clubbing, or cyanosis. Peripheral pulses are intact. - Labs CBC & Chem 7: 02/23/24 22:10 02/23/24 22:10 Labs: Abnormal Lab Results - Last 24 Hours (Table) 02/24/24 Range/Units 15:08 Urine Opiates Screen Detected H (NotDetected) Urine Cocaine Screen Detected H (NotDetected) Assessment and Plan Assessment: Bilateral pneumonia, possible viral/atypical pneumonia. Chest CTA showed bilateral multifocal groundglass opacities slightly more prominent in upper lobes. Reactive thoracic adenopathy noted. Acute infectious process suspected. Viral panel negative for influenza A/B, RSV, COVID. Consider drug-induced hypersensitivity pneumonitis/alveolitis.Bronchiolitis obliterans with organizing pneumonia cannot be completely excluded Acute dyspnea, secondary to above Chronic ongoing tobacco dependence, reportedly smokes 1 pack/day History of polysubstance abuse Plan: Repeat chest x-ray was noted, there may be some interval improvement. The patient has diffuse moderate bilateral pulmonary infiltrates. His oxygenation is stable and the patient is currently on room air oxygen with a pulse ox of 97%. Nevertheless, the CT of the chest showed extensive bilateral nodular pulmonary infiltrates with areas of groundglass and reactive lymphadenopathy. Noted the white cell count of 7.8, normal coagulation profile, D-dimer is not elevated, electrolytes are all stable. Urine drug screen was c onducted today and the patient is positive for cocaine. Amphetamines are essentially negative. The patient remains on Levaquin and Zosyn as a broad- spectrum antibiotic coverage. Patient remains on albuterol nebulized treatments on a as needed basis. He is on Robitussin DM for cough and congestion. As such, the exact nature of the pulmonary filtrates is not clear to me at this point. Echocardiogram was within normal limits, no vegetations Obtain a follow-up chest x-ray in the morning Clinically stable.
--- NOTE | 2024-02-25 16:01 | P.PN ---
Subjective Progress Note Date: 02/25/24 Principal diagnosis: Reason for follow-up is abnormal CT question of pneumonia Patient is a 38-year-old male with a past medical history significant for [place] CVA TIA history of rib fractures/collapsed lung in 2005 current everyday smoker mention started getting sick about a month ago initially seen in the ER treated for pneumonia some improvement but worsening symptoms over the 2 weeks before presentation the hospital mostly with the shortness of breath, patient did have a chest x-ray and CT angiogram of the chest shows bilateral multifocal groundglass opacity concerning for infectious etiology. On today's evaluation that is 02/25/2024, Patient is afebrile this morning and denies any chills, patient mention breathing comfortably and is currently on room air, patient denies any chest pain occasional cough but no sputum production patient denies any abdominal pain no diarrhea no nausea no vomiting. Patient did have a procalcitonin of 0.0 5 repeat COVID testing was negative blood cultures pending Objective - Vital Signs Vital signs: Vital Signs Temp 98.7 F 02/25/24 07:13 Pulse 95 02/25/24 07:13 Resp 16 02/25/24 07:13 BP 129/78 02/25/24 07:13 Pulse Ox 97 02/25/24 07:13 FiO2 Intake & Output 02/24/24 02/25/24 02/25/24 18:59 06:59 18:59 Other: Voiding Method Toilet Toilet # Voids 5 1 - Exam GENERAL DESCRIPTION: Middle-age male lying in bed in no distress RESPIRATORY SYSTEM: Unlabored breathing , decreased breath sounds at bases HEART: S1 S2 regular rate and rhythm , ABDOMEN: Soft , no tenderness EXTREMITIES: No edema feet - Labs CBC & Chem 7: 02/23/24 22:10 02/23/24 22:10 Labs: Abnormal Lab Results - Last 24 Hours (Table) 02/24/24 Range/Units 15:08 Urine Opiates Screen Detected H (NotDetected) Urine Cocaine Screen Detected H (NotDetected) Assessment and Plan (1) Abnormal CT scan, chest Current Visit: Yes Status: Acute Code(s): R93.89 - ABNORMAL FINDINGS ON DX IMAGING OF OTH BODY STRUCTURES SNOMED Code(s): 05263038255986826 Plan: 1patient presented hospital with increasing shortness of breath. Has been getting worse for the last 2 weeks in this patient with abnormal chest x-ray as well as CT angiogram of the chest concerning for diffuse infiltrate with a question of infectious was no infectious etiology increase of infectious etiology would be more likely viral as the patient did not have any fever or elevated white count and did have normal procalcitonin versus noninfectious etiology such as cardiac causes 2-patient did have repeat his COVID-19 nasopharyngeal swab which is negative as well 3-echocardiogram report pending 4-May continue with Levaquin we will discontinue Zosyn as no suspicious for gram-negative pneumonia Dictation was produced using [employer] dictation software. please excuse any grammatical, word or spelling errors. Time with Patient: Less than 30
[2024-02-26 09:02] VITALS: RESP 18
--- NOTE | 2024-02-26 09:58 | XR ---
EXAMINATION TYPE: XR chest 1V DATE OF EXAM: 02/26/2024 COMPARISON: 02/25/2024 HISTORY: 38-year-old male follow-up pneumonia TECHNIQUE: Single frontal view of the chest is obtained. FINDINGS: Heart normal size. Mild hyperinflation. Diffuse interstitial opacities persist without sig nificant change. IMPRESSION: Diffuse mild interstitial infiltrates persist.
--- NOTE | 2024-02-26 12:49 | P.PN ---
Subjective Progress Note Date: 02/26/24 patient is a 38-year-old gentleman past medical history significant for polysubstance abuse presented to the hospital for shortness of breath and feeling not well for the last 2 days. Patient stated that he was all right a few days ago and started noticing that he was getting short of breath. Shortness of breath was initially present on exertion but gradually progressed and is now present at rest and on exertion. Patient also complaining of cough which is nonproductive. Denies any chest pain. There is no complaint of fever or chills. There is no current nausea, vomiting abdominal pain.. Because of the symptoms, patient came to the ER Initial lab work done in the ER showed WBC 9.8, hemoglobin 10.7, platelet count 267, D-dimer 0.27, sodium 130, potassium 3.9, BUN 13, creatinine 0.69, glucose 127, calcium 9.2, magnesium 1.7, AST 21, ALT 17, Pro-Demarcus 0.05 Influenza A not detected Influenza B not detected RSV not detected COVID-19 not detected EKG done in the ER showed heart rate of 78, no ST segment elevation or depression seen, no T-wave inversions seen. Chest x-ray done in the ER showed bilateral multifocal acute infiltrates/edema CTA chest done showed bilateral multifocal groundglass opacities slightly more prominent in the upper lobes, no PE Patient admitted to internal medicine service 02/24. Patient seen and examined. Still complaining of shortness of breath on exertion. Complaining of cough 02/25. Patient seen and examined. Still complaining of dry cough. Kesha was di scontinued by ID, currently on Levaquin and steroid REVIEW OF SYSTEMS: CONSTITUTIONAL: No fever, no malaise,. CARDIOVASCULAR: No chest pain, no palpitations, no syncope. PULMONARY: As mentioned above GASTROINTESTINAL: No diarrhea, no nausea, no vomiting, no abdominal pain. NEUROLOGICAL: No headaches, no weakness, PHYSICAL EXAMINATION: GENERAL: The patient is alert and oriented x3, not in any acute distress. Well developed, well nourished. HEENT: Pupils are round and equally reacting to light. EOMI. No scleral icterus. No conjunctival pallor. Normocephalic, atraumatic. No pharyngeal erythema. No thyromegaly. CARDIOVASCULAR: S1 and S2 present. No murmurs, rubs, or gallops. PULMONARY: Chest is clear to auscultation, no wheezing or crackles. ABDOMEN: Soft, nontender, nondistended, normoactive bowel sounds. No palpable organomegaly. MUSCULOSKELETAL: No joint swelling or deformity. EXTREMITIES: No cyanosis, clubbing, or pedal edema. NEUROLOGICAL: Gross neurological examination did not reveal any focal deficits. SKIN: No rashes. Assessment and plan Bacterial pneumonia Respiratory distress History of pulseless abuse Tobacco addiction Monitor vital signs Monitor CBC Monitor CMP Continue telemetry monitoring Follow-up on blood cultures Follow-up on sputum cultures Continue Levaquin 2D echo done showed normal LV size and function, mild mitral regurg Continue breathing treatments Aggressive bronchopulmonary hygiene Encourage use of I-S Continue Tessalon Perles Pulmonary following ID following Labs and medication were reviewed.. Continue same treatment. Continue with symptomatic treatment. Resume home medication. Monitor labs and vitals. DVT and GI prophylaxis. Further recommendations as per clinical course of the patient Dictation was produced using [employer] dictation software. please excuse any grammatical, word or spelling errors. Objective - Vital Signs Vital signs: Vital Signs Temp 97.3 F L 02/26/24 07:22 Pulse 83 02/26/24 07:22 Resp 18 02/26/24 07:22 BP 146/82 02/26/24 07:22 Pulse Ox 95 02/26/24 07:22 FiO2 Intake & Output 02/25/24 02/26/24 02/26/24 18:59 06:59 18:59 Intake Total 240 Balance 240 Intake: Oral 240 Other: Voiding Method Toilet Toilet Toilet # Voids 4 2 - Labs CBC & Chem 7: 02/23/24 22:10 02/23/24 22:10 Labs: Microbiology - Last 24 Hours (Table) 02/23/24 22:07 Blood Culture - Preliminary Blood 02/23/24 22:22 Blood Culture - Preliminary Blood
[2024-02-26 14:27] VITALS: BP 126/72; PULSE 64; TEMP 97.9
--- NOTE | 2024-02-26 16:33 | P.PN ---
Subjective Progress Note Date: 02/26/24 Principal diagnosis: Reason for follow-up is abnormal CT question of pneumonia Patient is a 38-year-old male with a past medical history significant for [place] CVA TIA history of rib fractures/collapsed lung in 2005 current everyday smoker mention started getting sick about a month ago initially seen in the ER treated for pneumonia some improvement but worsening symptoms over the 2 weeks before presentation the hospital mostly with the shortness of breath, patient did have a chest x-ray and CT angiogram of the chest shows bilateral multifocal groundglass opacity concerning for infectious etiology. On today's evaluation that is 02/26/2024,the patient denies any fever or any chills, patient is breathing comfortably on room air, the patient denies chest pain shortness of breath and no worsening cough, patient denies abdominal pain, no nausea vomiting or diarrhea. Patient mention feeling better and wants to go home. No new lab has been obtained today Objective - Vital Signs Vital signs: Vital Signs Temp 97.3 F L 02/26/24 07:22 Pulse 83 02/26/24 07:22 Resp 18 02/26/24 07:22 BP 146/82 02/26/24 07:22 Pulse Ox 95 02/26/24 07:22 FiO2 Intake & Output 02/25/24 02/26/24 02/26/24 18:59 06:59 18:59 Intake Total 240 Balance 240 Intake: Oral 240 Other: Voiding Method Toilet Toilet Toilet # Voids 4 2 - Exam GENERAL DESCRIPTION: Middle-age male lying in bed in no distress RESPIRATORY SYSTEM: Unlabored breathing , decreased breath sounds at bases HEART: S1 S2 regular rate and rhythm , ABDOMEN: Soft , no tenderness EXTREMITIES: No edema feet - Labs CBC & Chem 7: 02/23/24 22:10 02/23/24 22:10 Labs: Microbiology - Last 24 Hours (Table) 02/23/24 22:07 Blood Culture - Preliminary Blood 02/23/24 22:22 Blood Culture - Preliminary Blood Assessment and Plan (1) Abnormal CT scan, chest Current Visit: Yes Status: Acute Code(s): R93.89 - ABNORMAL FINDINGS ON DX IMAGING OF OTH BODY STRUCTURES SNOMED Code(s): 45203694783796157 Plan: 1patient presented hospital with increasing shortness of breath. Has been getting worse for the last 2 weeks in this patient with abnormal chest x-ray as well as CT angiogram of the chest concerning for diffuse infiltrate with a question of infectious was no infectious etiology increase of infectious etio logy would be more likely viral as the patient did not have any fever or elevated white count and did have normal procalcitonin versus noninfectious etiology such as cardiac causes 2-patient did have repeat COVID-19 nasopharyngeal swab which is negative, urine for Legionella antigen is negative 3-patient may continue short course of Levaquin antibiotic clinical course closely Dictation was produced using [employer] dictation software. please excuse any grammatical, word or spelling errors. Time with Patient: Less than 30
--- NOTE | 2024-02-26 18:44 | P.PN ---
Subjective Progress Note Date: 02/26/24 Patient is a 38-year-old white male with past medical history significant for polysubstance abuse and current ongoing tobacco dependence., Patient previously was intubated and had a stay in the intensive care unit last year after a methamphetamine overdose. More recently, patient visited the emergency department on 01/20/2024 for evaluation of a persistent cough, fevers, and shortness of breath. Reportedly diagnosed with pneumonia, and he was sent home with a course of antibiotics. Patient states he completed all of his antibiotics. Reportedly initially felt well for 2 to 3 days. Unfortunately, he continues to experience a persistent congested cough which is overall nonproductive and associated shortness of breath. Shortness of breath is particularly bothersome with exertion. Denies any fevers. Denies any GI symptoms such as nausea or vomiting, diarrhea, abdominal pain. Denies chest pain or hemoptysis. He is currently resting comfortably on room air, in no acute respiratory distress. Follow-up chest x-ray in the emergency department did not show any improvement in his diffuse bilateral interstitial infiltrates. Chest CTA done on this visit did not show any acute pulmonary embolism. It did show bilateral multifocal groundglass opacities slightly more prominent in the upper lobes. Acute infectious process was suspected. Did test negative for influenza A, influenza B, RSV, COVID. He denies any sick contacts. Denies any recent travel. CBC unremarkable. No leukocytosis. BMP also unremarkable. Troponin less than 0.012. NT proBNP low. EKG shows normal sinus rhythm without any obvious acute ischemic changes. He has been covered on a combination of Levaquin and Zosyn. Currently afebrile. Vital signs are stable. On today's evaluation of 02/25/2024, patient is still having some cough and exertional dyspnea. No oxygen desaturations. Urine drug screen was positive f or cocaine. Legionella urine antigen was negative. COVID-19 was negative. Procalcitonin level was at 0.5. No other labs are available from today. The patient blood cultures have been negative. The patient remains on Levaquin. IV Solu-Medrol was added yesterday. Repeat chest x-ray was done today and this was reviewed and compared to the earlier chest x-rays and there is ongoing bilateral system infiltrates with probable interval improvement. On today's evaluation of 72,024, the patient's overall respiratory status is stable. He remains on room air oxygen. He continues to have some exertional dyspnea. I had a nice discussion with the patient. I reviewed the series of x- rays and the most recent x-ray that was done today on 02/26/2024. As mentioned, the patient has diffuse interstitial and micronodular pulmonary infiltrates. There may be some potentially some slight improvement on today's chest x-ray. I also reviewed the CAT scan of the chest and discussed findings with the patient. 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 Discussed with the patient this possibility. There is a likelihood that the patient may be encountering an occupational lung disease. Based on that, I suggested to keep the patient on high-dose prednisone. As mentioned, no suspicion for infection. Procalcitonin level has been low. I also suggested doing a connective tissue disease workup on this patient. The possibility of bronchiolitis cannot be completely excluded. Hypersensitive modalities with bronchiolitis need to be considered such as RB ILD. In any rate, I suggested giving the patient a course of steroids and repeating the chest x-ray and/or the CAT scan on outpatient basis and if no improvement, obviously patient will need a thoracoscopic wedge biopsy of the lung. He does understand my detailed explanation of his current situation. He feels that he can go home and can be followed up on outpatient basis. Objective - Vital Signs Vital signs: Vital Signs Temp 97.9 F 02/26/24 13:45 Pulse 64 02/26/24 13:45 Resp 18 02/26/24 13:45 BP 126/72 02/26/24 13:45 Pulse Ox 98 02/26/24 13:45 FiO2 Intake & Output 02/25/24 02/26/24 02/26/24 18:59 06:59 18:59 Intake Total 240 Balance 240 Intake: Oral 240 Other: Voiding Method Toilet Toilet Toilet # Voids 4 2 - Exam GENERAL EXAM: Alert, 38-year-old white male, comfortable in no apparent distress. HEAD: Normocephalic and atraumatic EYES: Normal reaction of pupils, equal size. NOSE: Clear with pink turbinates. THROAT: No erythema or exudates. NECK: No masses, no JVD. CHEST: No chest wall deformity. LUNGS: Equal air entry with no crackles, wheeze, rhonchi or dullness. On room air. No conversational dyspnea or accessory muscle use.. CVS: S1 and S2 normal with no audible murmur, regular rhythm. No extra heart sounds ABDOMEN: No hepatosplenomegaly, active bowel sounds, no guarding or rigidity. SPINE: No scoliosis or deformity SKIN: No rashes CENTRAL NERVOUS SYSTEM: No focal deficits, tone is normal in all 4 extremities. EXTREMITIES: There is no peripheral edema, clubbing, or cyanosis. Peripheral pulses are intact. - Labs CBC & Chem 7: 02/23/24 22:10 02/23/24 22:10 Labs: Microbiology - Last 24 Hours (Table) 02/23/24 22:22 Blood Culture - Preliminary Blood 02/23/24 22:07 Blood Culture - Preliminary Blood Assessment and Plan Assessment: Bilateral pneumonia, possible viral/atypical pneumonia. Chest CTA showed bilateral multifocal groundglass opacities slightly more prominent in upper lo bes. Reactive thoracic adenopathy noted. Acute infectious process suspected. Viral panel negative for influenza A/B, RSV, COVID. The patient has diffuse micronodular pulm infiltrates with interstitial infiltrates as discussed on the chest x-ray and the CAT scan of the chest. Consider occupational lung disease/acute silicosis based on his occupation. Infectious possibilities are felt to be less likely. RB ILD and/or other cause of bronchiolitis cannot be completely ruled out and the patient is currently on steroids. Clinically stable. No interval worsening shortness of breath. Acute dyspnea, secondary to above Chronic ongoing tobacco dependence, reportedly smokes 1 pack/day History of polysubstance abuse Plan: Clinically stable. I had a lengthy discussion with the patient as mentioned. The possibility of occupational lung disease/acute silicosis is highly likely in this patient. As such, advised the patient to be off work and use a respirator at least for the time being till he is recovered or pending further workup. Meanwhile, I sent blood work for connective disease markers and the appropriate order was placed. He is interested in going home. I think he should do the blood tests prior to him being released home. He should be going home on high-dose prednisone with gradual taper to be followed up on outpatient basis. If the pulmonary abnormalities persist, the patient may need a thoracoscopic wedge biopsy of the lung. He was explained this at length. He made a commitment to follow-up on those abnormalities. Will continue to follow. He clearly understands that he is not fully recovered at this point in time and further workup and follow-up needs to be done. His condition is stable. I believe he is stable for discharge from the pulmonary standpoint with close follow-up. Oxygenation is stable. Recommend high-dose prednisone at a dose of 60 mg p.o. daily with a gradual taper with close monitoring on outpatient basis.
[2024-02-27 04:19] LABS: Anti-Smith Ab Interp Negative (Negative)
[2024-02-28 15:08] LABS: C-ANCA <1:20 Titer (<1:20)
== END 2024-02-26 16:56 | disposition left against medical advice (07) | DRG 139 ==
LOC: EC 21:11 → 4SSUR 23:53
PROVIDERS: ADMIT Hospitalist; ATTEND Hospitalist
DX: J15.9 Unspecified bacterial pneumonia (principal); J12.9 Viral pneumonia, unspecified; R59.9 Enlarged lymph nodes, unspecified; R06.03 Acute respiratory distress; I25.2 Old myocardial infarction; F17.290 Nicotine dependence, other tobacco product, uncomplicated; F17.210 Nicotine dependence, cigarettes, uncomplicated; I34.0 Nonrheumatic mitral (valve) insufficiency; J21.9 Acute bronchiolitis, unspecified; J62.8 Pneumoconiosis due to other dust containing silica; Z86.73 Personal history of transient ischemic attack (TIA), and cerebral infarction without residual deficits; Z57.2 Occupational exposure to dust; Z91.51 Personal history of suicidal behavior; Z20.822 Contact with and (suspected) exposure to COVID-19; Z28.310 Unvaccinated for COVID-19
CPT/HCPCS: 36415; 71045; 71046; 71275; 80053; 80306; 82164; 83735; 83880; 84145; 84484; 85025; 85379; 85610; 85730; 86038; 86235; 86255; 86431; 87040; 87070; 87205; 87449; 87635; 87636; 93005; 93306; 94640; 96365; 96366; 96367; 99285